=== PATIENT | male | born 1940 | race Hispanic/Latino ===

== ENCOUNTER 2018-11-04 16:31 | Emergency (ER) | payer BC, MEDICARE ==
[2018-11-04 16:31] VITALS: BMI 25.0
[2018-11-04 16:43] VITALS: RESP 18; TEMP 98.8
[2018-11-04] MEDS ORDERED: Lidocaine 5% Patch TD STA (17:03)
--- NOTE | 2018-11-04 17:03 | ED PDOC ---
Arrival/HPI <Aleks Isabel - Last Filed: 11/06/18 17:35> - General Historian: Patient - History of Present Illness Narrative History of Present Illness (Text): 78 year old man with past medical history of arthritis presents to the emergency department sent by primary doctor for right hip CT scan. Patient has had worsening right hip pain for the last week without any specific trauma or injury. He saw his primary doctor Dr. Portillo in the office today who recommended he come to the emergency department for further evaluation. Patient states he's very active has been working harder lately. 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 Denies numbness, weakness, paresthesias, pain elsewhere, saddle anesthesia, bowel/bladder incontinence or any other associated symptoms. <Aurora Carbajal - Last Filed: 11/07/18 21:40> - General Chief Complaint: Lower Extremity Problem/Injury Time Seen by Provider: 11/04/18 16:46 Past Medical History - Provider Review Nursing Documentation Reviewed: Yes - Cardiac Hx Cardiac Disorders: No - Pulmonary Hx Respiratory Disorders: No - Neurological Hx Neurological Disorder: No - Psychiatric Hx Substance Use: No <Aurora Carbajal - Last Filed: 11/07/18 21:40> Family/Social History - Physician Review Nursing Documentation Reviewed: Yes Family/Social History: No Known Family HX Smoking Status: Heavy Smoker > 10 Cigarettes Daily Hx Alcohol Use: No Hx Substance Use: No <Aurora Carbajal - Last Filed: 11/07/18 21:40> Allergies/Home Meds <Aleks Isabel Q - Last Filed: 11/06/18 17:35> <Aurora Carbajal - Last Filed: 11/07/18 21:40> Allergies/Adverse Reactions: Allergies No Known Allergies Allergy (Verified 11/04/18 16:39) Review of Systems - Review of Systems Constitutional: Normal. absent: Fatigue, Fevers Eyes: Normal. absent: Vision Changes ENT: Normal. absent: Sore Throat, Sinus Congestion Respiratory: Normal. absent: SOB, Cough Cardiovascular: Normal. absent: Chest Pain, Palpitations Gastrointestinal: Normal. absent: Abdominal Pain, Nausea, Vomiting Genitourinary Male: Normal. absent: Dysuria, Frequency Musculoskeletal: Other (hip pain). absent: Back Pain, Neck Pain Skin: Normal. absent: Rash, Pruritis Neurological: Normal. absent: Headache, Dizziness Endocrine: Normal Hemo/Lymphatic: Normal Psychiatric: Normal <Aurora Carbajal - Last Filed: 11/07/18 21:40> Physical Exam Vital Signs Temp Pulse Resp BP Pulse Ox 11/04/18 21:22 80 18 113/60 98 11/04/18 21:15 80 18 113/60 98 11/04/18 16:40 98.8 F 75 18 148/69 96 <Aleks Isabel Denise - Last Filed: 11/06/18 17:35> Vital Signs Reviewed: Yes Vital Signs Temp Pulse Resp BP Pulse Ox 11/04/18 16:40 98.8 F 75 18 148/69 96 Temperature: Afebrile Blood Pressure: Normal Pulse: Regular Respiratory Rate: Normal Appearance: Positive for: Well-Appearing, Non-Toxic, Comfortable Pain Distress: Mild Mental Status: Positive for: Alert and Oriented X 3 - Systems Exam Head: Present: Atraumatic, Normocephalic Pupils: Present: PERRL Extroacular Muscles: Present: EOMI Conjunctiva: Present: Normal Mouth: Present: Moist Mucous Membranes Neck: Present: Normal Range of Motion. No: Meningeal Signs, MIDLINE TENDERNESS, Paraspinal Tenderness Respiratory/Chest: Present: Clear to Auscultation, Good Air Exchange. No: Respiratory Distress, Accessory Muscle Use Cardiovascular: Present: Regular Rate and Rhythm, Normal S1, S2, Peripheal Pulses Present Abdomen: Present: Normal Bowel Sounds. No: Tenderness, Distention, Peritoneal Signs, Rebound, Guarding Back: Present: Normal Inspection, Pain with Leg Raise (right hip). No: CVA Tenderness, Midline Tenderness, Paraspinal Tenderness Upper Extremity: Present: Normal Inspection, Normal ROM, NORMAL PULSES, Neurovascularly Intact, Capillary Refill < 2s. No: Cyanosis, Edema, Temperature Abnormalties Lower Extremity: Present: Normal Inspection, NORMAL PULSES, Tenderness (right lateral hip), Neurovascularly Intact, Capillary Refill < 2 s. No: Edema, Normal ROM (decreased at right hip), Swelling, Erythema, Deformity, Temperature Abnormalties Neurological: Present: GCS=15, CN II-XII Intact, Speech Normal, Motor Func Grossly Intact, Normal Sensory Function. No: Gait Normal (limp from right hip pain) Skin: Present: Warm, Dry, Normal Color. No: Rashes Psychiatric: Present: Alert, Oriented x 3, Normal Insight, Normal Concentration, Normal Affect, Normal Mood <Aurora Carbajal - Last Filed: 11/07/18 21:40> Medical Decision Making ED Course and Treatment: 11/05/18 18:35 No acute displaced fracture. 2.5 x 2.6 cm subarticular osteolytic lesion in the right anterior ischium with break in the inferior lateral cortical margin. The differential considerations include large geode, metastasis and lymphoma. Clinical follow-up is advised. Correlation with MRI without and with intravenous contrast/radionuclide bone scan is recommended for further evaluation. 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 A preliminary report was provided by [employer]. The final report is tagged to the PA review folder. Based on the provider charting below: <Entered By Aurora Carbajal - 11/05/18 04:58 > Spoke with Dr. Portillo who recommends CT right hip without any further workup. Concerned for AVN or metastatic disease. CT shows osteoarthritis with cystic v. lytic lesion. Will call PMD. Unable to reach Dr. Portillo, will discharge pt home with PMD followup. Pt reports improvement in pain with medications. Diagnostic testing results and plan of care discussed with patient. Strict instructions given regarding prescription use, importance of followup, and signs/symptoms to return to ER including worsening pain, saddle anesthesia, or any other new/worsening symptoms. Pt verbalized understanding of discussion. Patient is A&Ox3, ambluating with steady gait, with vital signs stable for discharge. PROVIDER IS AWARED OF THE CYSTIC VS. LYTIC LESION AND THE PATIENT RECEIVED ORTHOPEDIC FOLLOW UP. - RAD Interpretation Radiology Orders: 11/04/18 17:21 HIP WITHOUT CONTRAST RIGHT [CT] Stat - Medication Orders Current Medication Orders: Discontinued Medications Acetaminophen (Tylenol 325mg Tab) 650 mg PO STAT STA Stop: 11/04/18 17:04 Last Admin: 11/04/18 17:50 Dose: 650 mg Lidocaine (Lidoderm) 1 ea TD STAT STA Stop: 11/04/18 17:04 Last Admin: 11/04/18 17:51 Dose: 1 ea MAR Transdermal Patch Site Document 11/04/18 17:51 GMD (Rec: 11/04/18 17:51 GMD [id number]) Transdermal Patch Site Transdermal Patch Site Right Hip <Aleks Isabel - Last Filed: 11/06/18 17:35> ED Course and Treatment: Spoke with Dr. Portillo who recommends CT right hip without any further workup. Concerned for AVN or metastatic disease. CT shows osteoarthritis with cystic v. lytic lesion. Will call PMD. Unable to reach Dr. Portillo, will discharge pt home with PMD followup. Pt reports improvement in pain with medications, continues to be well appearing. Diagnostic testing results and plan of care discussed with patient. Strict instructions given regarding prescription use, importance of followup, and signs/symptoms to return to ER including worsening pain, saddle anesthesia, or any other new/worsening symptoms. Pt verbalized understanding of discussion. Patient is A&Ox3, ambulating with steady gait, with vital signs stable for discharge. - RAD Interpretation Radiology Orders: 11/04/18 17:01 HIP MIN 4V W/ PELVIS RT [RAD] Stat LS SPINE WITH OBL > 18 YRS OLD [RAD] Stat <Aurora Carbajal - Last Filed: 11/07/18 21:40> Disposition/Present on Arrival <Aleks Isabel - Last Filed: 11/06/18 17:35> - Present on Arrival Any Indicators Present on Arrival: No History of DVT/PE: No History of Uncontrolled Diabetes: No Urinary Catheter: No History of Decub. Ulcer: No History Surgical Site Infection Following: None - Disposition Have Diagnosis and Disposition been Completed?: Yes Disposition Time: 21:00 <Aurora Carbajal - Last Filed: 11/07/18 21:40> - Disposition Diagnosis: Osteoarthritis, Lytic bone lesion of hip Disposition: HOME/ ROUTINE Condition: STABLE Discharge Instructions (ExitCare): Osteoarthritis (DC) Additional Instructions: Ibuprofen every 8 hours with food as needed for pain Lidoderm patches daily as needed, 12 hours on, 12 hours off Rest, no strenuous activity Followup with orthopedics within 2 days Followup with primary doctor within 2 days Return to ER with any new/worsening symptoms Prescriptions: Ibuprofen [Motrin Tab] 600 mg PO Q8 #30 tab Lidocaine 5% [Lidoderm] 1 ea TD DAILY #30 patch Referrals: Catrachito Grier III, MD [Medical Doctor] - Follow up with primary Lionel Portillo MD [Family Provider] - Follow up with primary Forms: [employer] (Ecuadorean), WORK NOTE
[2018-11-04 21:16] VITALS: BP 113/60; PULSE 80; O2SAT 98
--- NOTE | 2018-11-05 08:41 | CT ---
Date of service: 11/04/2018 PROCEDURE: CT of the Right Hip. HISTORY: hip pain, severe pain, r/o lesion COMPARISON: None available. TECHNIQUE: Contiguous axial images of the right hip were obtained. Coronal and sagittal reformats were generated. Radiation dose: Total exam DLP = 235.92 mGy-cm. This CT exam was performed using one or more of the following dose reduction techniques: Automated exposure control, adjustment of the mA and/or kV according to patient size, and/or use of iterative reconstruction technique. FINDINGS: BONES: There is no acute displaced fracture. There is mild diffuse bone in the right anterior ischium with cortical break. There is diffuse bone demineralization. There is a 2.5 x 2.6 cm well-circumscribed round osteolytic lesion in the subarticular anterior ischium with break in the inferior lateral cortex. There are additional osteolytic lesions in the subarticular acetabulum. RIGHT HIP JOINT: There is moderate degenerative osteoarthrosis with reduced joint space and marginal spurring. SOFT TISSUES: Unremarkable. There is moderate osteitis pubis. IMPRESSION: No acute displaced fracture. 2.5 x 2.6 cm subarticular osteolytic lesion in the right anterior ischium with break in the inferior lateral cortical margin. The differential considerations include large geode, metastasis and lymphoma. Clinical follow-up is advised. Correlation with MRI without and with intravenous contrast/radionuclide bone scan is recommended for further evaluation. 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 A preliminary report was provided by [email or web address]. The final report is tagged to the PA review folder.
== END 2018-11-04 21:22 | disposition home or self-care (01) ==
LOC: ED 16:31
DX: M16.11 Unilateral primary osteoarthritis, right hip (principal); F17.210 Nicotine dependence, cigarettes, uncomplicated; M89.8X5 Other specified disorders of bone, thigh

== ENCOUNTER 2018-12-12 10:01 | Outpatient (CLI) | payer BC | END 2018-12-12 10:02 | disposition home or self-care (01) | LOC: LAB 10:01 ==

== ENCOUNTER 2018-12-14 11:02 | Outpatient (CLI) | payer BC | END 2018-12-14 11:03 | disposition home or self-care (01) | LOC: RAD 11:02 | DX: M16.11 Unilateral primary osteoarthritis, right hip (principal); D16.9 Benign neoplasm of bone and articular cartilage, unspecified ==

== ENCOUNTER 2018-12-15 08:09 | Outpatient (CLI) | payer BC | END 2018-12-15 08:10 | disposition home or self-care (01) | LOC: RAD 08:09 | DX: M16.11 Unilateral primary osteoarthritis, right hip (principal); D16.9 Benign neoplasm of bone and articular cartilage, unspecified ==

== ENCOUNTER 2018-12-15 13:57 | Inpatient (IN) | payer BC, MEDICARE ==
[2018-12-15 16:12] LABS: BASO # 0.05 K/mm3 (0.0-2.0); BASO % 0.5 % (0.0-3.0); EOS # 0.4 (0.0-0.7); EOS % 3.5 % (1.5-5.0); HEMOGLOBIN 13.5 g/dL (14.0-18.0); LYMPH # 1.6 (1.2-3.4); LYMPH % 15.6 % (22.0-35.0); MEAN CELL VOLUME 94.4 fl (80.0-105.0); MEAN CORPUSCULAR HEMOGLOBIN 31.3 pg (25.0-35.0); MEAN CORPUSCULAR HGB CONC 33.2 g/dl (31.0-37.0); MEAN PLATELET VOLUME 11.2 fl (7.0-11.0); MONO # 0.8 (0.1-0.6); MONO % 8.3 % (1.0-6.0); RBC 4.31 10^6/uL (3.5-6.1); WHITE BLOOD COUNT 10.2 10^3/uL (4.5-11.0)
[2018-12-15 16:35] LABS: ALB/GLOB RATIO 1.1 (1.1-1.8); ALBUMIN 4.2 g/dL (3.0-4.8); BLOOD UREA NITROGEN 20 mg/dL (7-21); CALCIUM 9.3 mg/dL (8.4-10.5); GFR NON-AFRICAN AMERICAN > 60
[2018-12-15 16:36] LABS: INR 1.1; PARTIAL THROMBOPLASTIN TIME 40.8 Seconds (26.9-38.3); PROTHROMBIN TIME 12.2 SECONDS (9.4-12.5)
[2018-12-15 16:38] LABS: ALT/SGPT 18 U/L (7-56); AST/SGOT 39 U/L (17-59)
[2018-12-15] MEDS ORDERED: Vancomycin 1gm in NS 250ml 1 GM/250 ML BAG IVPB STA (16:45)
--- NOTE | 2018-12-15 16:51 | ED PDOC ---
Arrival/HPI - General Chief Complaint: Lower Extremity Problem/Injury Historian: Patient - History of Present Illness Narrative History of Present Illness (Text): 12/15/18 16:52 78 year old M with past medical history of arthritis presents to the emergency department sent by primary doctor for admission. Patient reports right hip pain for greater than a month. Recent MRI of R. Hip performed showed a septic joint. 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 Denies numbness, weakness, paresthesias, pain elsewhere, saddle anesthesia, bowel/bladder incontinence or any other associated symptoms. PMD: Dr. Portillo Time/Duration: > month Symptom Onset: Sudden Symptom Course: Unchanged Activities at Onset: Light Context: Home Past Medical History - Provider Review Nursing Documentation Reviewed: Yes Primary Care Provider: Lionel Portillo - Infectious Disease Hx of Infectious Diseases: None - Cardiac Hx Cardiac Disorders: No - Pulmonary Hx Respiratory Disorders: No - Neurological Hx Neurological Disorder: No - Psychiatric Hx Substance Use: No - Anesthesia Hx Anesthesia: Yes Hx Anesthesia Reactions: No Family/Social History - Physician Review Nursing Documentation Reviewed: Yes Family/Social History: Unknown Family HX Smoking Status: Heavy Smoker > 10 Cigarettes Daily Hx Alcohol Use: No Hx Substance Use: No Allergies/Home Meds Allergies/Adverse Reactions: Allergies No Known Allergies Allergy (Verified 11/04/18 16:39) Review of Systems - Physician Review All systems were reviewed & negative as marked: Yes - Review of Systems Constitutional: absent: Fevers ENT: absent: Sore Throat, Rhinorrhea, Epistaxis Respiratory: absent: SOB, Cough, Wheezing Cardiovascular: absent: Chest Pain, Orthopnea, Syncope Gastrointestinal: absent: Abdominal Pain, Diarrhea, Nausea, Vomiting Genitourinary Male: absent: Dysuria Musculoskeletal: Arthralgias (right hip) Skin: absent: Rash, Laceration, Ulcer, Cellulitis Neurological: absent: Headache, Dizziness, Speech Changes, Facial Droop Physical Exam Vital Signs Reviewed: Yes Vital Signs Temp Pulse Resp BP Pulse Ox 12/15/18 14:18 98.2 F 84 18 134/78 97 Temperature: Afebrile Blood Pressure: Normal Pulse: Regular Respiratory Rate: Normal Appearance: Positive for: Well-Appearing, Non-Toxic, Comfortable Pain Distress: Mild Mental Status: Positive for: Alert and Oriented X 3 - Systems Exam Head: Present: Atraumatic, Normocephalic Pupils: Present: PERRL Extroacular Muscles: Present: EOMI Conjunctiva: Present: Normal Mouth: Present: Moist Mucous Membranes Neck: Present: Normal Range of Motion Respiratory/Chest: Present: Clear to Auscultation, Good Air Exchange. No: Respiratory Distress, Accessory Muscle Use Cardiovascular: Present: Regular Rate and Rhythm, Normal S1, S2. No: Murmurs Abdomen: No: Tenderness, Distention, Peritoneal Signs Back: Present: Normal Inspection Upper Extremity: Present: Normal Inspection. No: Cyanosis, Edema Lower Extremity: Present: Tenderness (right hip tenderness). No: Edema Neurological: Present: GCS=15, CN II-XII Intact, Speech Normal Skin: Present: Warm, Dry, Normal Color. No: Rashes Psychiatric: Present: Alert, Oriented x 3, Normal Insight, Normal Concentration Medical Decision Making ED Course and Treatment: 12/15/18 16:55 Impression: 78 year old M presents to the emergency department sent by primary doctor for admission. Patient reports right hip pain for greater than a month. Recent MRI of R. Hip performed showed a septic joint. 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 Denies numbness, weakness, paresthesias, pain elsewhere, saddle anesthesia, bowel/bladder incontinence or any other associated symptoms. Plan: -- Blood Culture -- Rocephin -- Vancomycin -- Reassess and disposition Prior Visits: Notes and results from previous visits were reviewed. Patient was last seen in the emergency department on Progress Notes: Discussed case with Dr. Portillo who wants patient admitted to hospitalist. Patient's orthopedic physician is not available. - Lab Interpretations Lab Results: PT 12.2 SECONDS (9.4-12.5) 12/15/18 16:21 INR 1.10 12/15/18 16:21 APTT 40.8 Seconds (26.9-38.3) H 12/15/18 16:21 Total Bilirubin 0.6 mg/dL (0.2-1.3) 12/15/18 16:00 AST 39 U/L (17-59) 12/15/18 16:00 ALT 18 U/L (7-56) 12/15/18 16:00 Alkaline Phosphatase 109 U/L (38-126) 12/15/18 16:00 Total Protein 7.8 g/dL (5.8-8.3) 12/15/18 16:00 Albumin 4.2 g/dL (3.0-4.8) 12/15/18 16:00 Globulin 3.7 gm/dL 12/15/18 16:00 Albumin/Globulin Ratio 1.1 (1.1-1.8) 12/15/18 16:00 - Scribe Statement The provider has reviewed the documentation as recorded by the Delfino Corcoran All medical record entries made by the Delfino were at my direction and personally dictated by me. I have reviewed the chart and agree that the record accurately reflects my personal performance of the history, physical exam, medical decision making, and the department course for this patient. I have also personally directed, reviewed, and agree with the discharge instructions and disposition. Disposition/Present on Arrival - Present on Arrival Any Indicators Present on Arrival: No History of DVT/PE: No History of Uncontrolled Diabetes: No Urinary Catheter: No History of Decub. Ulcer: No History Surgical Site Infection Following: None - Disposition Have Diagnosis and Disposition been Completed?: Yes Diagnosis: Septic joint, Osteoarthritis Disposition: HOSPITALIZED Disposition Time: 16:40 Condition: STABLE
[2018-12-15] MEDS: cefTRIAXone 1 gm 1 GM/100 ML BAG IVPB SCH (17:08)
[2018-12-15] MEDS ORDERED: Enoxaparin 40 mg Syringe SC SCH (17:45)
--- NOTE | 2018-12-15 17:47 | RAD ---
Date of service: 12/15/2018 HISTORY: septic joint- potential op clearence COMPARISON: No prior. FINDINGS: LUNGS: No active pulmonary disease. PLEURA: No significant pleural effusion identified, no pneumothorax apparent. CARDIOVASCULAR: No atherosclerotic calcification present No radiographic findings to suggest acute or significant cardiovascular disease. OSSEOUS STRUCTURES: No significant abnormalities. VISUALIZED UPPER ABDOMEN: Normal. OTHER FINDINGS: None. IMPRESSION: No active disease.
--- NOTE | 2018-12-15 18:19 | CP.PCM.HP ---
<LindseySalina - Last Filed: 12/15/18 19:35> History of Present Illness - History of Present Illness History of Present Illness: Salina Portillo, PGY-1, Internal Medicine History and Physical for Dr. Hunter 78 year old male with past medical history unspecified arthritis presented with pain and discomfort of his right hip 3 weeks ago. He reports falling one week prior to pain and discomfort starting. Patient reports this pain started while he was relaxing and noticed that his gait changed significantly. Pain radiated to his right knee. Pain was worse with icy/hot [place] and had no relieving factors. He tried taking ibuprofen which did not help the pain. He denied any other symptoms other than pain including fever, chills, chest pain, shortness of breath, nausea, vomiting, constipation, diarrhea, dysuria, hematuria, numbness and tingling. He went and saw his PMD, Dr. 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 He was also given a cane at that time. He ambulated without a cane prior to this. He was told to follow up with Dr. Tolbert, who after doing imaging this week asked him to follow up at the hospital today. 12-point ROS was unremarkable except for what was mentioned above. PMH: as mentioned above PSH: vasectomy in 1969 FMHx: noncontributary SHx: smoked 5 cigarettes a day for 60 years. Denies alcohol or recreational drug use Allergies: NKDA PMD: Dr. Portillo Pharmacy: [facility] on and [facility] medications: lidocaine patch, tramadol 50 Q12. Confirmed with pharmacy. Filled recently but denies taking any medication. Present on Admission - Present on Admission Any Indicators Present on Admission: No Review of Systems - Review of Systems Review of Systems: except as mentioned above Past Patient History - Infectious Disease Hx of Infectious Diseases: None - Past Social History Smoking Status: Heavy Smoker > 10 Cigarettes Daily - CARDIAC Hx Cardiac Disorders: No - PULMONARY Hx Respiratory Disorders: No - NEUROLOGICAL Hx Neurological Disorder: No - PSYCHIATRIC Hx Substance Use: No - SURGICAL HISTORY Hx Surgeries: No - ANESTHESIA Hx Anesthesia: Yes Hx Anesthesia Reactions: No Meds Allergies/Adverse Reactions: Allergies Allergy/AdvReac Type Severity Reaction Status Date / Time No Known Allergies Allergy Verified 12/15/18 20:27 Physical Exam - Constitutional Appears: Well, Non-toxic, No Acute Distress - Head Exam Head Exam: ATRAUMATIC, NORMAL INSPECTION, NORMOCEPHALIC - Eye Exam Eye Exam: EOMI, PERRL - ENT Exam ENT Exam: Mucous Membranes Moist, Normal Exam - Neck Exam Neck exam: Positive for: Normal Inspection - Respiratory Exam Respiratory Exam: Clear to Auscultation Bilateral, NORMAL BREATHING PATTERN. absent: Rales, Rhonchi, Wheezes - Cardiovascular Exam Cardiovascular Exam: REGULAR RHYTHM, RRR, +S1, +S2. absent: Clicks, Gallop, Rubs - GI/Abdominal Exam GI & Abdominal Exam: Normal Bowel Sounds, Soft. absent: Distended, Firm, Guarding, Tenderness - Extremities Exam Additional comments: pain with ROM of right lower extremity right movement of quadriceps and calves. +4/5 strength of right lower extremity, +5/5 of left lower extremity and bilateral upper extremity. - Neurological Exam Neurological exam: Alert, CN II-XII Intact, Oriented x3 Additional comments: altered gait - Psychiatric Exam Psychiatric exam: Normal Affect, Normal Mood - Skin Skin Exam: Dry, Intact, Normal Color Results - Vital Signs Recent Vital Signs: Last Vital Signs Temp 98.2 F 12/15/18 14:18 Pulse 84 12/15/18 14:18 Resp 18 12/15/18 14:18 BP 134/78 12/15/18 14:18 Pulse Ox 97 12/15/18 14:18 - Labs Result Diagrams: 12/15/18 16:00 12/15/18 16:00 Labs: Laboratory Results - last 24 hr 12/15/18 12/15/18 12/15/18 16:00 16:00 16:21 WBC 10.2 RBC 4.31 Hgb 13.5 L Hct 40.7 L MCV 94.4 MCH 31.3 MCHC 33.2 RDW 13.0 Plt Count 251 MPV 11.2 H Neut % (Auto) 72.1 H Lymph % (Auto) 15.6 L Cass % (Auto) 8.3 H Eos % (Auto) 3.5 Baso % (Auto) 0.5 Lymph # (Auto) 1.6 Cass # (Auto) 0.8 H Eos # (Auto) 0.4 Baso # (Auto) 0.05 Absolute Neuts (auto) 7.34 H PT 12.2 INR 1.10 APTT 40.8 H Sodium 139 Potassium 4.4 Chloride 104 Carbon Dioxide 24 Anion Gap 15 BUN 20 Creatinine 0.6 L Est GFR ( Amer) > 60 Est GFR (Non-Af Amer) > 60 Random Glucose 89 Calcium 9.3 Total Bilirubin 0.6 AST 39 ALT 18 Alkaline Phosphatase 109 Total Protein 7.8 Albumin 4.2 Globulin 3.7 Albumin/Globulin Ratio 1.1 Assessment & Plan - Assessment and Plan (Free Text) Assessment: 78 year old male with past medical history unspecified arthritis presented with pain and discomfort of his right hip 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 Hip MRI on 12/14 showed moderate right hip joint eff usion with associated synovial debris and hypertrophy most prominent at the inferior aspect of the joint space. Extensive bony signal abnormality seen throughout the right proximal femur including the right femoral head and neck as well as extending to the intertrochanteric region and proximal medullary cavity. Prominent adjacent signal abnormality is seen throughout the acetabulum at its anterior, mid, and posterior aspects as well as extension into the posterior superior right pubic bone. The signal abnormality demonstrates confluent decreased T1 signal with confluent increased STIR signal with associated prominent postcontrast enhancement. These findings would be concerning for an acute septic arthritis with associated and resultant acute osteomyelitis of the right acetabulum and right femur. 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 Adjacent prominent edema and postcontrast enhancement within the surrounding musculature of the proximal right hip and acetabulum suggestive for a myositis. Prominent lobulated cystic lesion seen within posterior inferior right pubic bone/posterior acetabulum measuring 2.7 centimeters. Additional multilobulated cystic lesions seen within the anterior superior right bony acetabulum measuring up to 1.7 centimeters demonstrating decreased T1 signal with increased STIR signal with peripheral postcontrast enhancement. Mild reactive edema seen within the inferior right hemisacrum adjacent to the SI joint. Limited evaluation of the remainder of the bony pelvis demonstrates a 7 millimeter subchondral cyst within the left super ior acetabulum. 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 -Main findings of Hip MRI on 12/14 showed moderate right hip joint effusion with associated synovial debris and hypertrophy most prominent at the inferior aspect of the joint space. Extensive bony signal abnormality seen throughout the right proximal femur including the right femoral head and neck as well as extending to the intertrochanteric region and proximal medullary cavity. Prominent adjacent signal abnormality is seen throughout the acetabulum at its anterior, mid, and posterior aspects as well as extension into the posterior superior right pubic bone. The signal abnormality demonstrates confluent decreased T1 signal with confluent increased STIR signal with associated prominent postcontrast enhancement. These findings would be concerning for an acute septic arthritis with associated and resultant acute osteomyelitis of the right acetabulum and right femur. -Bone scan: intense accumulation of radionuclide only seen on the 3rd hour delayed images corresponding findings in the right acetabulum on recent cross-sectional imaging studies -Start vancomycin and ceftriaxone for antibiotic coverage for septic joint -Start tylenol PRN and ibuprofen PRN for pain -Dr. Mercado, Orthopedic Surgery, consulted for further recommendations. -Dr. Benitez, IR, consulted for further recommendations -Dr. Meneses, ID, consulted for further recommendations. Unspecified Arthritis -Complained of arthritis in the left arm -Start tylenol PRN and ibuprofen PRN for pain GI prophylaxis: protonix DVT prophylaxis: SCD Patient plan discussed with Dr. Hunter - Date & Time Date: 12/15/18 Time: 18:39 <Keven Hunter - Last Filed: 12/16/18 16:17> Results - Vital Signs Recent Vital Signs: Last Vital Signs Temp 97.6 F 12/16/18 12:55 Pulse 56 L 12/16/18 12:55 Resp 16 12/16/18 12:55 BP 140/69 12/16/18 12:55 Pulse Ox 99 12/16/18 12:55 - Labs Result Diagrams: 12/16/18 06:20 12/16/18 06:20 Labs: Laboratory Results - last 24 hr 12/15/18 12/15/18 12/15/18 16:00 16:00 16:21 WBC 10.2 RBC 4.31 Hgb 13.5 L Hct 40.7 L MCV 94.4 MCH 31.3 MCHC 33.2 RDW 13.0 Plt Count 251 MPV 11.2 H Neut % (Auto) 72.1 H Lymph % (Auto) 15.6 L Cass % (Auto) 8.3 H Eos % (Auto) 3.5 Baso % (Auto) 0.5 Lymph # (Auto) 1.6 Cass # (Auto) 0.8 H Eos # (Auto) 0.4 Baso # (Auto) 0.05 Absolute Neuts (auto) 7.34 H ESR PT 12.2 INR 1.10 APTT 40.8 H Sodium 139 Potassium 4.4 Chloride 104 Carbon Dioxide 24 Anion Gap 15 BUN 20 Creatinine 0.6 L Est GFR ( Amer) > 60 Est GFR (Non-Af Amer) > 60 Random Glucose 89 Calcium 9.3 Phosphorus Magnesium Total Bilirubin 0.6 AST 39 ALT 18 Alkaline Phosphatase 109 Total Protein 7.8 Albumin 4.2 Globulin 3.7 Albumin/Globulin Ratio 1.1 Fluid Source Fluid Appearance Fluid WBC Fluid RBC Fluid Tot Cell Count Fluid Mononuclear Cell Fl Polymorphonucl Cell Fluid Comment 12/16/18 12/16/18 12/16/18 06:20 06:20 07:00 WBC 9.1 RBC 4.38 Hgb 13.8 L Hct 41.2 L MCV 94.1 MCH 31.5 MCHC 33.5 RDW 13.1 Plt Count 263 MPV 11.2 H Neut % (Auto) 71.7 H Lymph % (Auto) 12.7 L Cass % (Auto) 9.4 H Eos % (Auto) 5.8 H Baso % (Auto) 0.4 Lymph # (Auto) 1.2 Cass # (Auto) 0.9 H Eos # (Auto) 0.5 Baso # (Auto) 0.04 Absolute Neuts (auto) 6.55 H ESR 52 H PT INR APTT Sodium 140 Potassium 4.0 Chloride 108 H Carbon Dioxide 25 Anion Gap 12 BUN 18 Creatinine 0.7 L Est GFR ( Amer) > 60 Est GFR (Non-Af Amer) > 60 Random Glucose 94 Calcium 9.0 Phosphorus 3.7 Magnesium 2.1 Total Bilirubin 0.6 AST 30 ALT 19 Alkaline Phosphatase 103 Total Protein 7.5 Albumin 4.0 Globulin 3.5 Albumin/Globulin Ratio 1.1 Fluid Source Fluid Appearance Fluid WBC Fluid RBC Fluid Tot Cell Count Fluid Mononuclear Cell Fl Polymorphonucl Cell Fluid Comment 12/16/18 12:18 WBC RBC Hgb Hct MCV MCH MCHC RDW Plt Count MPV Neut % (Auto) Lymph % (Auto) Cass % (Auto) Eos % (Auto) Baso % (Auto) Lymph # (Auto) Cass # (Auto) Eos # (Auto) Baso # (Auto) Absolute Neuts (auto) ESR PT INR APTT Sodium Potassium Chloride Carbon Dioxide Anion Gap BUN Creatinine Est GFR ( Amer) Est GFR (Non-Af Amer) Random Glucose Calcium Phosphorus Magnesium Total Bilirubin AST ALT Alkaline Phosphatase Total Protein Albumin Globulin Albumin/Globulin Ratio Fluid Source Peritoneal Fluid Appearance Sl cloudy Fluid WBC 63.0 Fluid RBC 784.0 H Fluid Tot Cell Count 100 H Fluid Mononuclear Cell 55.6 H Fl Polymorphonucl Cell 44.4 H Fluid Comment Straw Attending/Attestation - Attestation I have personally seen and examined this patient.: Yes I have fully participated in the care of the patient.: Yes I have reviewed all pertinent clinical information: Yes Notes (Text): 12/16/18 15:55 attending note; Patient seen and examined with resident in ER. Patient is alert and awake. Denies any fevers, chills Denies any nausea, vomiting. Complaining of right hip and knee pain. Patient is currently walking with a cane. Patient is a 78 year old male with past medical history arthritis presented with pain and discomfort of his right hip 3 weeks ago. He reports falling one week prior to pain and discomfort starting. 1. Right hip pain/ septic arthritis what ;patient had an apparent fall a month ago. He was evaluated by Orthopedics Dr. Vidal. MRI was ordered. MRI showed septic joint with fluid collection and suspected osteomyelitis. Case discussed with orthopedics Dr. Valenzuela in detail. Started on vancomycin and Rocephin. ID evaluation requested. 2. We will get interventional radiology for aspiration of the right hip joint. 3. Patient currently ambulates with a cane. Non weightbearing recommended. 4. Pain management with Motrin.
--- NOTE | 2018-12-15 21:11 | CARD ---
APPROVED REPORT Date of service: 12/15/2018 EKG Measurement Heart [id number] <Conclusion> Normal sinus rhythm Minimal voltage criteria for LVH, may be normal variant Borderline ECG
[2018-12-15 23:21] VITALS: BMI 21.4
[2018-12-15] MEDS ORDERED: Pneumococcal 23-Valent Vaccine IM ONE (23:21)
[2018-12-16 06:53] LABS: BASO # 0.04 K/mm3 (0.0-2.0); BASO % 0.4 % (0.0-3.0); EOS # 0.5 (0.0-0.7); EOS % 5.8 % (1.5-5.0); HEMOGLOBIN 13.8 g/dL (14.0-18.0); LYMPH # 1.2 (1.2-3.4); LYMPH % 12.7 % (22.0-35.0); MEAN CELL VOLUME 94.1 fl (80.0-105.0); MEAN CORPUSCULAR HEMOGLOBIN 31.5 pg (25.0-35.0); MEAN CORPUSCULAR HGB CONC 33.5 g/dl (31.0-37.0); MEAN PLATELET VOLUME 11.2 fl (7.0-11.0); MONO # 0.9 (0.1-0.6); MONO % 9.4 % (1.0-6.0); RBC 4.38 10^6/uL (3.5-6.1); RED CELL DISTRIBUTION WIDTH 13.1 % (11.5-14.5); WHITE BLOOD COUNT 9.1 10^3/uL (4.5-11.0)
[2018-12-16 07:37] LABS: ALB/GLOB RATIO 1.1 (1.1-1.8); ALT/SGPT 19 U/L (7-56); AST/SGOT 30 U/L (17-59); BLOOD UREA NITROGEN 18 mg/dL (7-21); GFR NON-AFRICAN AMERICAN > 60
--- NOTE | 2018-12-16 09:28 | CP.PCM.PN ---
<Salina Portillo - Last Filed: 12/16/18 12:01> Subjective - Date & Time of Evaluation Date of Evaluation: 12/16/18 Time of Evaluation: 09:25 - Subjective Subjective: Salina Portillo, PGY-1, Internal Medicine Progress Note for Dr. Hunter Patient seen and evaluated at bedside. Patient had no acute overnight events. Patient continues to have right hip pain radiating to the knee. Patient denies any other symptoms including chest pain, shortness of breath, fever, chills, nausea, vomiting, constipation, diarrhea, dysuria, hematuria. 12-point ROS was unremarkable except for what was mentioned above. Objective - Vital Signs/Intake and Output Vital Signs (last 24 hours): Temp Pulse Resp BP Pulse Ox 97.6 F 89 18 103/64 97 12/16/18 06:00 12/16/18 06:00 12/16/18 06:00 12/16/18 06:00 12/16/18 06:00 - Medications Medications: Current Medications Acetaminophen (Tylenol 325mg Tab) 650 mg PO Q6H PRN PRN Reason: Pain, Mild (1-3) Ceftriaxone Sodium (Rocephin 1 Gram Ivpb) 1 gm in 100 mls @ 100 mls/hr IVPB DAILY JENNY; Protocol Last Admin: 12/15/18 17:08 Dose: 100 mls/hr Vancomycin HCl (Vancomycin 1gm) 1 gm in 250 mls @ 167 mls/hr IVPB Q12H JENNY; Protocol Ibuprofen (Motrin Tab) 600 mg PO Q6H PRN PRN Reason: Pain, moderate (4-7) Last Admin: 12/16/18 08:39 Dose: 600 mg Pantoprazole Sodium (Protonix Inj) 40 mg IVP DAILY JENNY - Labs Labs: 12/16/18 06:20 12/16/18 06:20 PT 12.2 SECONDS (9.4-12.5) 12/15/18 16:21 INR 1.10 12/15/18 16:21 APTT 40.8 Seconds (26.9-38.3) H 12/15/18 16:21 - Constitutional Appears: Well, Non-toxic, No Acute Distress - Head Exam Head Exam: ATRAUMATIC, NORMAL INSPECTION, NORMOCEPHALIC - Eye Exam Eye Exam: EOMI, PERRL - ENT Exam ENT Exam: Mucous Membranes Moist, Normal Exam - Neck Exam Neck exam: Positive for: Normal Inspection - Respiratory Exam Respiratory Exam: Clear to Auscultation Bilateral, NORMAL BREATHING PATTERN. absent: Rales, Rhonchi, Wheezes - Cardiovascular Exam Cardiovascular Exam: REGULAR RHYTHM, RRR, +S1, +S2. absent: Clicks, Gallop, Rubs - GI/Abdominal Exam GI & Abdominal Exam: Normal Bowel Sounds, Soft. absent: Distended, Firm, Guarding, Tenderness - Extremities Exam Additional comments: pain with ROM of right lower extremity right movement of quadriceps and calves. +4/5 strength of right lower extremity, +5/5 of left lower extremity and bilateral upper extremity. - Neurological Exam Neurological exam: Alert, CN II-XII Intact, Oriented x3 Additional comments: altered gait - Psychiatric Exam Psychiatric exam: Normal Affect, Normal Mood - Skin Skin Exam: Dry, Intact, Normal Color Assessment and Plan - Assessment and Plan (Free Text) Assessment: 78 year old male with past medical history unspecified arthritis presented with pain and discomfort of his right hip 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 Hip MRI on 12/14 showed moderate right hip joint effusion with associated synovial debris and hypertrophy most prominent at the inferior aspect of the joint space. Extensive bony signal abnormality seen throughout the right proximal femur including the right femoral head and neck as well as extending to the intertrochanteric region and proximal medullary cavity. Prominent adjacent signal abnormality is seen throughout the acetabulum at its anterior, mid, and posterior aspects as well as extension into the posterior superior right pubic bone. The signal abnormality demonstrates confluent decreased T1 signal with confluent increased STIR signal with associated prominent postcontrast enhancement. These findings would be concerning for an acute septic arthritis with associated and resultant acute osteomyelitis of the right acetabulum and right femur. 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 Adjacent prominent edema and post contrast enhancement within the surrounding musculature of the proximal right hip and acetabulum suggestive for a myositis. Prominent lobulated cystic lesion seen within posterior inferior right pubic bone/posterior acetabulum measuring 2.7 centimeters. Additional multilobulated cystic lesions seen within the anterior superior right bony acetabulum measuring up to 1.7 centimeters demonstrating decreased T1 signal with increased STIR signal with peripheral postcontrast enhancement. Mild reactive edema seen within the inferior right hemisacrum adjacent to the SI joint. Limited evaluation of the remainder of the bony pelvis demonstrates a 7 millimeter subchondral cyst within the left superior acetabulum. 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 -Main findings of Hip MRI on 12/14 showed moderate right hip joint effusion with associated synovial debris and hypertrophy most prominent at the inferior aspect of the joint space. Extensive bony signal abnormality seen throughout the right proximal femur including the right femoral head and neck as well as extending to the intertrochanteric region and proximal medullary cavity. Prominent adjacent signal abnormality is seen throughout the acetabulum at its anterior, mid, and posterior aspects as well as extension into the posterior superior right pubic bone. The signal abnormality demonstrates confluent decreased T1 signal with confluent increased STIR signal with associated prominent postcontrast enhancement. These findings would be concerning for an acute septic arthritis with associated and resultant acute osteomyelitis of the right acetabulum and right femur. -Bone scan: intense accumulation of radionuclide only seen on the 3rd hour delayed images corresponding findings in the right acetabulum on recent cross-sectional imaging studies -Will follow up HIV, RPR, FTA-ABS, lyme disease, ESR, CRP, procalcitonin, blood culture for further evaluation -Plan is for aspiration of fluid of the hip and culture of that fluid wtih Dr. Benitez -Stopped antibiotics as patient is not septic at this time. Will wait for cultures prior to starting proper antibiotic regimen. -Continue tylenol PRN and ibuprofen PRN for pain -Dr. Mercado, Orthopedic Surgery, consulted for further recommendations. -Dr. Benitez, IR, consulted for further recommendations -Dr. Meneses, ID, consulted for further recommendations. Unspecified Arthritis -Complained of arthritis in the left arm -Continue tylenol PRN and ibuprofen PRN for pain GI prophylaxis: protonix DVT prophylaxis: SCD Patient plan discussed with Dr. Hunter <Keven Hunter - Last Filed: 12/16/18 16:23> Objective - Vital Signs/Intake and Output Vital Signs (last 24 hours): Temp Pulse Resp BP Pulse Ox 97.6 F 56 L 16 140/69 99 12/16/18 12:55 12/16/18 12:55 12/16/18 12:55 12/16/18 12:55 12/16/18 12:55 Intake and Output: 12/16/18 12/16/18 06:59 18:59 Intake Total 125 Balance 125 - Medications Medications: Current Medications Acetaminophen (Tylenol 325mg Tab) 650 mg PO Q6H PRN PRN Reason: Pain, Mild (1-3) Ibuprofen (Motrin Tab) 600 mg PO Q6H PRN PRN Reason: Pain, moderate (4-7) Last Admin: 12/16/18 08:39 Dose: 600 mg Pantoprazole Sodium (Protonix Inj) 40 mg IVP DAILY JENNY Last Admin: 12/16/18 09:36 Dose: 40 mg - Labs Labs: 12/16/18 06:20 12/16/18 06:20 PT 12.2 SECONDS (9.4-12.5) 12/15/18 16:21 INR 1.10 12/15/18 16:21 APTT 40.8 Seconds (26.9-38.3) H 12/15/18 16:21 Attending/Attestation - Attestation I have personally seen and examined this patient.: Yes I have fully participated in the care of the patient.: Yes I have reviewed all pertinent clinical information, including history, physical exam and plan: Yes Notes (Text): 12/16/18 16:17 attending note; Patient seen and examined with resident. Patient is alert and awake. Denies any fevers, chills Denies any nausea, vomiting. Complaining of right hip and knee pain. Patient is a 78 year old male with past medical history arthritis presented with pain and discomfort of his right hip 3 weeks ago. He reports falling one week prior to pain and discomfort starting. 1. Right hip pain/ septic arthritis; MRI showed septic joint with fluid collection and suspected osteomyelitis. Case discussed with orthopedics Dr. Valenzuela in detail. 2. s/p aspiration of R hip by interventional radiology. Cultures sent. Follow-up closely . 3. Orthopedics evaluation appreciated. non weightbearing of right lower extremity recommended. PT evaluation requested. 4. Pain management with Motrin. 5. Septic arthritis; ID evaluation appreciated. Antibiotics on hold still culture results. Diagnosis, follow-up plan discussed with the patient in detail. Case discussed with PMD Dr. Portillo in detail.
[2018-12-16] MEDS: cefTRIAXone 1 gm 1 GM/100 ML BAG IVPB SCH (09:36)
[2018-12-16] MEDS ORDERED: Vancomycin 1gm in NS 250ml 1 GM/250 ML BAG IVPB SCH (10:00)
[2018-12-16] MEDS ORDERED: Midazolam 2 MG/2 ML VIAL ONE (11:53)
[2018-12-16] MEDS ORDERED: Midazolam 2 MG/2 ML VIAL IVP ONE (11:55)
[2018-12-16 12:19] LABS: BODY FLUID TYPE PERITONEAL
[2018-12-16 12:59] LABS: BF GROSS APPEARANCE SL CLOUDY (CLEAR)
[2018-12-16 13:00] LABS: BODY FLUID TOTAL COUNT 100 (0-0)
--- NOTE | 2018-12-16 13:00 | CP.PCM.CON ---
History of Present Illness - History of Present Illness History of Present Illness: Orthopedic consultation Dr. Valenzuela 78M complains of increasing right hip pain over the last two months, now severe, with increasing limp. He says he tripped and fell about 2 months ago, and at that time he noticed hip pain, but he was still able to walk with some pain. When the pain continued and did not resolve, he called his primary doctor who referred him to the ER for work up. At that time, he had a hip CT completed (11/04/2018) that showed some subchondral cysts, including large cyst near acetabulum, and patient was discharged to f/u with ortho as outpt. He was seen in office of Dr. Tolbert who ordered MRI of hip at that time, and after receiving results, called patient and primary doctor to have patient proceed to ER at that time. Patient denies any other trauma. Denies foreign travel. Denies fever/chills/cough/cold recently. No recent dysuria. No prior hip pain prior to this fall. He is now using cane due to hip pain and limp. Past Patient History - Infectious Disease Hx of Infectious Diseases: None - Past Social History Smoking Status: Current Some Days Smoker - CARDIAC Hx Cardiac Disorders: No - PULMONARY Hx Respiratory Disorders: Yes (SMOKES 5 CIGARETTES) - NEUROLOGICAL Hx Neurological Disorder: No - HEENT Hx HEENT Problems: (WEARS RX GLASSES) - MUSCULOSKELETAL/RHEUMATOLOGICAL Hx Musculoskeletal Disorders: Yes (RIGHT KNEE PAIN.) Hx Arthritis: Yes (SEPTIC JOINT RIGHT HIP) Hx Falls: No Hx Osteoarthritis: Yes Hx Unsteady Gait: Yes (CANE) - GENITOURINARY/GYNECOLOGICAL Hx Genitourinary Disorders: Yes (VASECTOY 1967) - PSYCHIATRIC Hx Psychophysiologic Disorder: No Hx Substance Use: No - SURGICAL HISTORY Hx Surgeries: No - ANESTHESIA Hx Anesthesia: Yes Hx Anesthesia Reactions: No Meds Allergies/Adverse Reactions: Allergies Allergy/AdvReac Type Severity Reaction Status Date / Time No Known Allergies Allergy Verified 12/15/18 20:27 - Medications Medications: Current Medications Acetaminophen (Tylenol 325mg Tab) 650 mg PO Q6H PRN PRN Reason: Pain, Mild (1-3) Ibuprofen (Motrin Tab) 600 mg PO Q6H PRN PRN Reason: Pain, moderate (4-7) Last Admin: 12/16/18 08:39 Dose: 600 mg Pantoprazole Sodium (Protonix Inj) 40 mg IVP DAILY JENNY Last Admin: 12/16/18 09:36 Dose: 40 mg Physical Exam - Constitutional Appears: Well, No Acute Distress - Head Exam Head Exam: ATRAUMATIC - Neck Exam Neck exam: Positive for: Full Rom, Normal Inspection - Expanded Lower Extremities Exam Right Hip exam: normal inspection (pain with any right hip rom) Neuro vacular tendon exam: no vascular compromise (calves soft NT neghomans +ROM ankle/toes, sesnationintact) - Neurological Exam Neurological exam: Alert, Oriented x3 - Psychiatric Exam Psychiatric exam: Normal Affect, Normal Mood - Skin Skin Exam: Dry, Intact, Normal Color, Warm Results - Vital Signs Recent Vital Signs: Last Vital Signs Temp 97.6 F 12/16/18 12:25 Pulse 61 12/16/18 12:25 Resp 15 12/16/18 12:25 BP 129/64 12/16/18 12:25 Pulse Ox 97 12/16/18 12:25 - Labs Result Diagrams: 12/16/18 06:20 12/16/18 06:20 Labs: Laboratory Results - last 24 hr 12/15/18 12/15/18 12/15/18 16:00 16:00 16:21 WBC 10.2 RBC 4.31 Hgb 13.5 L Hct 40.7 L MCV 94.4 MCH 31.3 MCHC 33.2 RDW 13.0 Plt Count 251 MPV 11.2 H Neut % (Auto) 72.1 H Lymph % (Auto) 15.6 L Wolfe % (Auto) 8.3 H Eos % (Auto) 3.5 Baso % (Auto) 0.5 Lymph # (Auto) 1.6 Wolfe # (Auto) 0.8 H Eos # (Auto) 0.4 Baso # (Auto) 0.05 Absolute Neuts (auto) 7.34 H ESR PT 12.2 INR 1.10 APTT 40.8 H Sodium 139 Potassium 4.4 Chloride 104 Carbon Dioxide 24 Anion Gap 15 BUN 20 Creatinine 0.6 L Est GFR ( Amer) > 60 Est GFR (Non-Af Amer) > 60 Random Glucose 89 Calcium 9.3 Phosphorus Magnesium Total Bilirubin 0.6 AST 39 ALT 18 Alkaline Phosphatase 109 Total Protein 7.8 Albumin 4.2 Globulin 3.7 Albumin/Globulin Ratio 1.1 Fluid Source Fluid WBC Fluid Mononuclear Cell Fl Polymorphonucl Cell 12/16/18 12/16/18 12/16/18 06:20 06:20 07:00 WBC 9.1 RBC 4.38 Hgb 13.8 L Hct 41.2 L MCV 94.1 MCH 31.5 MCHC 33.5 RDW 13.1 Plt Count 263 MPV 11.2 H Neut % (Auto) 71.7 H Lymph % (Auto) 12.7 L Wolfe % (Auto) 9.4 H Eos % (Auto) 5.8 H Baso % (Auto) 0.4 Lymph # (Auto) 1.2 Wolfe # (Auto) 0.9 H Eos # (Auto) 0.5 Baso # (Auto) 0.04 Absolute Neuts (auto) 6.55 H ESR 52 H PT INR APTT Sodium 140 Potassium 4.0 Chloride 108 H Carbon Dioxide 25 Anion Gap 12 BUN 18 Creatinine 0.7 L Est GFR ( Amer) > 60 Est GFR (Non-Af Amer) > 60 Random Glucose 94 Calcium 9.0 Phosphorus 3.7 Magnesium 2.1 Total Bilirubin 0.6 AST 30 ALT 19 Alkaline Phosphatase 103 Total Protein 7.5 Albumin 4.0 Globulin 3.5 Albumin/Globulin Ratio 1.1 Fluid Source Fluid WBC Fluid Mononuclear Cell Fl Polymorphonucl Cell 12/16/18 12:18 WBC RBC Hgb Hct MCV MCH MCHC RDW Plt Count MPV Neut % (Auto) Lymph % (Auto) Wolfe % (Auto) Eos % (Auto) Baso % (Auto) Lymph # (Auto) Wolfe # (Auto) Eos # (Auto) Baso # (Auto) Absolute Neuts (auto) ESR PT INR APTT Sodium Potassium Chloride Carbon Dioxide Anion Gap BUN Creatinine Est GFR ( Amer) Est GFR (Non-Af Amer) Random Glucose Calcium Phosphorus Magnesium Total Bilirubin AST ALT Alkaline Phosphatase Total Protein Albumin Globulin Albumin/Globulin Ratio Fluid Source Peritoneal Fluid WBC 63.0 Fluid Mononuclear Cell 55.6 H Fl Polymorphonucl Cell 44.4 H - Impressions Impression: atient Name / ID : KEENAN Alva / [id number] Exam Date : 12/14/2018 11:18:58 ( Approved ) Study Comment : Sex / Age : M / 78Y Creator : Augusto Baird MD Dictator : Augusto Baird MD Channel Rebuilder : Presentation Team Member : Augusto Baird MD Approver2 : Report Date : 12/14/2018 18:02:15 My Comment : MRI right hip History: Hip pain. Comparison: CT dated 11/04/2018 Technique: Multi-echo multiplanar sequences were performed through the right hip without and with the use of intravenous contrast. Findings: Right hip: Moderate right hip joint effusion with associated synovial debris and hypertrophy most prominent at the inferior aspect of the joint space. Extensive bony signal abnormality seen throughout the right proximal femur including the right femoral head and neck as well as extending to the intertrochanteric region and proximal medullary cavity. Prominent adjacent signal abnormality is seen throughout the acetabulum at its anterior, mid, and posterior aspects as well as extension into the posterior superior right pubic bone. The signal abnormality demonstrates confluent decreased T1 signal with confluent increased STIR signal with associated prominent postcontrast enhancement. These findings would be concerning for an acute septic arthritis with associated and resultant acute osteomyelitis of the right acetabulum and right femur. 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 Additional considerations may include osseous metastatic disease versus the sequelae of acute inflammatory changes versus additional etiology. Clinical correlation. Adjacent prominent edema and postcontrast enhancement within the surrounding musculature of the proximal right hip and acetabulum suggestive for a myositis. Again identified is a prominent lobulated cystic lesion seen within posterior inferior right pubic bone/posterior acetabulum measuring 2.7 centimeters best seen on series 5, image 11 demonstrating decreased T1 signal and increased STIR signal with some peripheral postcontrast enhancement. This is of uncertain clinical etiology. This may represent a large intraosseous ganglia versus synovial cyst versus additional etiology. There appears to be some cortical breakthrough at the lateral margin of the cyst which is better delineated on the CT scan. Additional multilobulated cystic lesions seen within the anterior superior bony acetabulum measuring up to 1.7 centimeters demonstrating decreased T1 signal with increased STIR signal with peripheral postcontrast enhancement. This is also of uncertain clinical etiology. This may represent a prominent subchondral cyst and or ganglia and or additional etiology. Moderate insertional tendinopathy of the left iliopsoas tendon on the lesser trochanter. Right rectus femoris tendon attachments appear preserved. Moderate insertional tendinopathy of the right gluteus tendon attachments on the greater trochanter. Moderate right-sided hamstring origin tendinosis. Mild reactive edema seen within the inferior right hemisacrum adjacent to the SI joint as demonstrated on series 5, images 10-12; nonspecific. Developing acute infectious and or inflammatory changes at this level cannot be excluded. Clinic al correlation. Degenerative changes in the lower lumbar spine. Limited evaluation of the remainder of the bony pelvis demonstrates a 7 millimeter subchondral cyst within the left superior acetabulum. Moderate degenerative changes of the left hip joint space. Moderate insertional tendinopathy of the left gluteus tendon attachments on the greater trochanter. Impression: 1. Moderate right hip joint effusion with associated synovial debris and hypertrophy most prominent at the inferior aspect of the joint space. Extensive bony signal abnormality seen throughout the right proximal femur including the right femoral head and neck as well as extending to the intertrochanteric region and proximal medullary cavity. Prominent adjacent signal abnormality is seen throughout the acetabulum at its anterior, mid, and posterior aspects as well as extension into the posterior superior right pubic bone. The signal abnormality demonstrates confluent decreased T1 signal with confluent increased STIR signal with associated prominent postcontrast enhancement. These findings would be concerning for an acute septic arthritis with associated and resultant acute osteomyelitis of the right acetabulum and right femur. 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 Additional con siderations may include osseous metastatic disease versus the sequelae of acute inflammatory changes versus additional etiology. Clinical correlation. 2. Adjacent prominent edema and postcontrast enhancement within the surrounding musculature of the proximal right hip and acetabulum suggestive for a myositis. 3. Again identified is a prominent lobulated cystic lesion seen within posterior inferior right pubic bone/posterior acetabulum measuring 2.7 centimeters best seen on series 5, image 11 demonstrating decreased T1 signal and increased STIR signal with some peripheral postcontrast enhancement. This is of uncertain clinical etiology. This may represent a large intraosseous ganglia versus synovial cyst versus intraosseous cyst versus additional etiology. There appears to be some cortical breakthrough at the lateral margin of the cyst which is better delineated on the CT scan. 4. Additional multilobulated cystic lesions seen within the anterior superior right bony acetabulum measuring up to 1.7 centimeters demonstrating decreased T1 signal with increased STIR signal with peripheral postcontrast enhancement. This is also of uncertain clinical etiology. This may represent a prominent subchondral cyst and or ganglia and or additional etiology. 5. Moderate insertional tendinopathy of the left iliopsoas tendon on the lesser trochanter. 6. Moderate insertional tendinopathy of the right gluteus tendon attachments on the greater trochanter. 7. Moderate right-sided hamstring origin tendinosis. 8. Mild reactive edema seen within the inferior right hemisacrum adjacent to the SI joint as demonstrated on series 5, images 10-12; nonspecific. Developing acute infectious and or inflammatory changes at this level cannot be excluded. Clinical correlation. 9. Degenerative changes in the lower lumbar spine. 10. Limited evaluation of the remainder of the bony pelvis demonstrates a 7 millimeter subchondral cyst within the left superior acetabulum. Moderate degen erative changes of the left hip joint space. Moderate insertional tendinopathy of the left gluteus tendon attachments on the greater trochanter. These findings were related to the physician data assistant Johanna Manzo at 5:40 p.m. on 12/14/2018. Assessment & Plan (1) Septic arthritis of hip Assessment and Plan: with secondary osteomyelitis based on MRI unclear cause no acute orthopedic intervention indicated, will need minimum 6 weeks IV antibiotics ESR elevated, CRP pending ID consultation PICC line PT for ambulation training, NWB at this time RLE VTE proph d/w Dr. Valenzuela, agrees with above d/w Dr. Benitez, 3cc only of normal appearing synovial fluid, fluid cell count is not indicative of infection will f/u cultures/gram stain d/w Dr. Valenzuela Status: Acute
--- NOTE | 2018-12-16 14:42 | CON ---
DATE OF CONSULTATION: 12/16/2018 The patient is seen in room 372, bed 2. CHIEF COMPLAINT: Right hip pain times several weeks. HISTORY OF PRESENT ILLNESS: This is a 78-year-old male with a history of arthritis, who has been seen in the emergency room with right hip pain. Actually, the patient was seen in the emergency room in [facility], more than a [id number] ago for hip pain and had a CAT scan at that time, continued to have pain. There were no fevers, no chills, no nausea, no vomiting, no chest pain. The patient returned to the emergency room yesterday, was seen by Dr. Karimi . 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 He denies any headaches, blurred vision. No neck pain. No sore throat. PAST MEDICAL HISTORY: Significant only he was a heavy smoker, he is down to 7-10 cigarettes a day. He states he does not have any diabetes, hypertension, just the arthritis. PAST SURGICAL HISTORY: Noncontributory. ALLERGIES: HE HAS NO KNOWN ALLERGIES. MEDICATIONS: He takes the Motrin for his hip pain. He has no travel history. He lives with his . He has no pets. He works in [place], . PHYSICAL EXAMINATION: GENERAL: The patient is in bed. VITAL SIGNS: A temperature of 98, blood pressure is 134/70, heart rate of 84, respiratory rate of 20. HEENT: Examination of HEENT is unremarkable. NECK: Supple. LUNGS: Have decreased breath sounds. HEART: Normal S1, S2. ABDOMEN: Examination is soft, nontender. No rebound, no guarding, no andrew. EXTREMITIES: On examination of the hip, there is some pain and tenderness with movement. No erythema and no discharge on exam. LABORATORY DATA: Laboratory examination reveals a white count of 10,000, hemoglobin of 13, platelets of 251. Coagulation is noted. Chemistries reveal a BUN of 18, creatinine of 0.8. Microbiology is pending. The patient did have an MRI of the hip on 12/14/2018, which showed a moderate right hip effusion associated with synovial debris and hypertrophy, and the patient also had a CAT scan of the hip on 11/04/2018, osteolytic lesions are seen on the CAT scan. He had a chest x-ray, no active disease. History and physical examination reveals the patient has had right hip pain. ASSESSMENT AND PLAN: A 78-year-old male with no significant past medical history, now with right hip pain, osteoarthritis, and since the chronicity of this is well over almost 2-month-old, we will hold off on any antibiotics, if there was a septic joint, it would have been destroyed by now, unless there is no infection, he does not describe any fevers and chills, may be just osteoarthritis, and we will discontinue the vancomycin and Rocephin. No antibiotics at this point. Recommended synovial fluid evaluation in addition to gram-stain and cultures and cell count and crystal evaluation and routine. We will also order a sed rate and a C-reactive protein, and we will make further recommendations upon availability. No antibiotics at this point since the patient has had the symptoms now over 6 weeks, and we will order a line workup with a line tests with reflex, rule out line septic joint, in addition to sed rate, C-reactive protein, and procalcitonin, inflammatory markers, and we will follow closely with you. Hold antibiotics, pending synovial fluid aspirate and cultures, crystals and gram stain. Jorje Meneses MD
--- NOTE | 2018-12-16 16:15 | CT ---
PROCEDURE: CT guided right hip aspiration HISTORY: Possible septic arthritis right hip. PHYSICIAN(S): Abdon Benitez MD. TECHNIQUE: The relative risks and indications of the procedure were explained to the patient and consent obtained. The patient was placed supine on the CT scanner and preliminary images through the pelvis obtained. Conscious sedation and monitoring were provided throughout the procedure by a nurse. There is a small amount of fluid noted in the right hip joint. A right anterior approach was selected the area prepped and draped usual sterile fashion. Conscious sedation monitoring were provided throughout the procedure by a nurse. 1 percent xylocaine was used anesthetize skin soft tissues. 18 gauge needle was advanced into the right hip joint. 3 cc of clear viscous fluid was aspirated. Cell count/differential and culture were sent. The patient tolerated the procedure well. IMPRESSION: 1. CT-guided right hip aspiration. 2-3 cc viscous clear fluid was aspirated
--- NOTE | 2018-12-16 17:07 | RAD ---
Date of service: 12/16/2018 PROCEDURE: Pelvis and right hip HISTORY: Septic joint, right hip pain. COMPARISON: December 15, 2018. Three-phase bone scan. 12/14/2018 MRI right hip. 11/04/2018 CT right hip. TECHNIQUE: Standard protocol for this study/examination. Two views. FINDINGS: Degenerative changes in both hips right greater than left. The lytic findings seen with clarity on recent cross-sectional imaging studies are difficult to appreciate on the current examination. IMPRESSION: No acute findings related to/ accounting for the clinical presentation. Severe degenerative changes right hip.
[2018-12-16 17:14] LABS: RAPID PLASMA REAGIN NONREACTIVE (NONREACTIVE)
[2018-12-17] MEDS: Pantoprazole 40 mg EC Tab PO SCH (06:36)
[2018-12-17 07:07] LABS: BASO # 0.03 K/mm3 (0.0-2.0); BASO % 0.3 % (0.0-3.0); EOS # 0.4 (0.0-0.7); EOS % 3.1 % (1.5-5.0); HEMOGLOBIN 13.3 g/dL (14.0-18.0); LYMPH % 8.7 % (22.0-35.0); MEAN CELL VOLUME 95.1 fl (80.0-105.0); MEAN CORPUSCULAR HEMOGLOBIN 30.8 pg (25.0-35.0); MEAN CORPUSCULAR HGB CONC 32.4 g/dl (31.0-37.0); MEAN PLATELET VOLUME 11.4 fl (7.0-11.0); MONO # 0.9 (0.1-0.6); MONO % 7.8 % (1.0-6.0); RBC 4.32 10^6/uL (3.5-6.1); RED CELL DISTRIBUTION WIDTH 13.1 % (11.5-14.5); WHITE BLOOD COUNT 11.2 10^3/uL (4.5-11.0)
[2018-12-17 07:37] LABS: ALB/GLOB RATIO 1.1 (1.1-1.8); ALBUMIN 3.9 g/dL (3.0-4.8); ALT/SGPT 13 U/L (7-56); AST/SGOT 29 U/L (17-59); BLOOD UREA NITROGEN 18 mg/dL (7-21); CALCIUM 9.1 mg/dL (8.4-10.5); GFR NON-AFRICAN AMERICAN > 60
--- NOTE | 2018-12-17 13:26 | CP.PCM.PN ---
<Amberly Lynch - Last Filed: 12/17/18 13:26> Subjective - Date & Time of Evaluation Date of Evaluation: 12/17/18 Time of Evaluation: 09:30 - Subjective Subjective: INTERNAL MEDICINE PROGRESS NOTE FOR DR. CHARLES Lynch PGY1 Pt seen and examined at bedside this am. Pt underwent R hip arthrocentesis yesterday without complications. He is denying 12 point ROS today Objective - Vital Signs/Intake and Output Vital Signs (last 24 hours): Temp Pulse Resp BP Pulse Ox 98.2 F 80 18 107/65 97 12/17/18 08:58 12/17/18 08:58 12/17/18 08:58 12/17/18 08:58 12/17/18 08:58 Intake and Output: 12/17/18 12/17/18 06:59 18:59 Intake Total 420 Balance 420 - Medications Medications: Current Medications Acetaminophen (Tylenol 325mg Tab) 650 mg PO Q6H PRN PRN Reason: Pain, Mild (1-3) Diphenhydramine HCl (Benadryl) 25 mg PO HS PRN PRN Reason: Insomnia Ibuprofen (Motrin Tab) 600 mg PO Q6H PRN PRN Reason: Pain, moderate (4-7) Last Admin: 12/17/18 09:02 Dose: 600 mg Pantoprazole Sodium (Protonix Ec Tab) 40 mg PO 0600 JENNY Last Admin: 12/17/18 06:36 Dose: 40 mg - Labs Labs: 12/17/18 05:00 12/17/18 05:00 PT 12.2 SECONDS (9.4-12.5) 12/15/18 16:21 INR 1.10 12/15/18 16:21 APTT 40.8 Seconds (26.9-38.3) H 12/15/18 16:21 - Constitutional Appears: Well, Non-toxic, No Acute Distress - Head Exam Head Exam: ATRAUMATIC, NORMAL INSPECTION, NORMOCEPHALIC - Eye Exam Eye Exam: EOMI, PERRL - ENT Exam ENT Exam: Mucous Membranes Moist, Normal Exam - Neck Exam Neck exam: Positive for: Normal Inspection - Respiratory Exam Respiratory Exam: Clear to Auscultation Bilateral, NORMAL BREATHING PATTERN. absent: Rales, Rhonchi, Wheezes - Cardiovascular Exam Cardiovascular Exam: REGULAR RHYTHM, RRR, +S1, +S2. absent: Clicks, Gallop, Rubs - GI/Abdominal Exam GI & Abdominal Exam: Normal Bowel Sounds, Soft. absent: Distended, Firm, Guarding, Tenderness - Extremities Exam Additional comments: pain with ROM of right lower extremity right movement of quadriceps and calves. +4/5 strength of right lower extremity, +5/5 of left lower extremity and bilateral upper extremity. - Neurological Exam Neurological exam: Alert, CN II-XII Intact, Oriented x3 Additional comments: altered gait - Psychiatric Exam Psychiatric exam: Normal Affect, Normal Mood - Skin Skin Exam: Dry, Intact, Normal Color Assessment and Plan - Assessment and Plan (Free Text) Assessment: 78 year old male with past medical history arthritis presented with pain and discomfort of his right hip 3 weeks ago s/p fall one week prior to pain and discomfort starting. Plan: Septic Joint of the Right Hip Hip/Pelvis X-ray 12/16: No acute findings related to/ accounting for the clinical presentation. Severe degenerative changes right hip. Cyst Aspiration CT 12/16: . CT-guided right hip aspiration. 2-3 cc viscous clear fluid was aspirated. MRI Hip 12/16: 1. Moderate right hip joint effusion with associated synovial debris and hypertrophy most prominent at the inferior aspect of the joint space. Extensive bony signal abnormality seen throughout the right proximal femur including the right femoral head and neck as well as extending to the intertrochanteric region and proximal medullary cavity. Prominent adjacent signal abnormality is seen throughout the acetabulum at its anterior, mid, and posterior aspects as well as extension into the posterior superior right pubic bone. The signal abnormality demonstrates confluent decreased T1 signal with confluent increased STIR signal with associated prominent postcontrast enh ancement. These findings would be concerning for an acute septic arthritis with associated and resultant acute osteomyelitis of the right acetabulum and right femur. 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 Additional considerations may include osseous metastatic disease versus the sequelae of acute inflammatory changes versus additional etiology. Clinical correlation. 2. Adjacent prominent edema and postcontrast enhancement within the surrounding musculature of the proximal right hip and acetabulum suggestive for a myositis. 3. Again identified is a prominent lobulated cystic lesion seen within posterior inferior right pubic bone/posterior acetabulum measuring 2.7 centimeters best seen on series 5, image 11 demonstrating decreased T1 signal and increased STIR signal with some peripheral postcontrast enhancement. This is of uncertain clinical etiology. This may represent a large intraosseous ganglia versus synovial cyst versus intraosseous cyst versus additional etiology. There appears to be some cortical breakthrough at the lateral margin of the cyst which is better delineated on the CT scan. 4. Additional multilobulated cystic lesions seen within the anterior superior right bony acetabulum measuring up to 1.7 centimeters demonstrating decreased T1 signal with increased STIR signal with peripheral postcontrast enhancement. This is also of uncertain clinical etiology. This may represent a prominent subchondral cyst and or ganglia and or additional etiology. 5. Moderate insertional tendinopathy of the left iliopsoas tendon on the lesser trochanter. 6. Moderate insertional tendinopathy of the right gluteus tendon attachments on the greater trochanter. 7. Moderate right- sided hamstring origin tendinosis. 8. Mild reactive edema seen within the inferior right hemisacrum adjacent to the SI joint as demonstrated on series 5, images 10-12; nonspecific. Developing acute infectious and or inflammatory changes at this level cannot be excluded. Clinical correlation. 9. Degenerative changes in the lower lumbar spine. 10. Limited evaluation of the remainder of the bony pelvis demonstrates a 7 millimeter subchondral cyst within the left superior acetabulum. Moderate degenerative changes of the left hip joint space. Moderate insertional tendinopathy of the left gluteus tendon attachments on the greater trochanter -s/p 2-3cc R hip arthrocentesis. Fluid WBC 53. RPR: nonreactive. HIV: nonreactive. Procalcitonin: 0.08. CRP: 6.10. Blood culture: NKTD FTA-ABS, lyme disease, ESR pending -Hold antiiotics, pending synovial fluid aspirate & cultures, crystals, gram stain -Continue tylenol PRN and ibuprofen PRN for pain -Pending -Dr. Valenzuela, Orthopedic Surgery, consulted -Dr. Benitez, IR, consulted -Dr. Meneses, ID, consulted Unspecified Arthritis -Complained of arthritis in the left arm -Continue tylenol PRN and ibuprofen PRN for pain GI/DVT: protonix/SCD Case reviewed with attending physician, Dr. Charles Lynch PGY1 <Keven Hunter - Last Filed: 12/17/18 15:56> Objective - Vital Signs/Intake and Output Vital Signs (last 24 hours): Temp Pulse Resp BP Pulse Ox 98.2 F 80 18 107/65 97 12/17/18 08:58 12/17/18 08:58 12/17/18 08:58 12/17/18 08:58 12/17/18 08:58 Intake and Output: 12/17/18 12/17/18 06:59 18:59 Intake Total 420 Balance 420 - Medications Medications: Current Medications Acetaminophen (Tylenol 325mg Tab) 650 mg PO Q6H PRN PRN Reason: Pain, Mild (1-3) Diphenhydramine HCl (Benadryl) 25 mg PO HS PRN PRN Reason: Insomnia Ibuprofen (Motrin Tab) 600 mg PO Q6H PRN PRN Reason: Pain, moderate (4-7) Last Admin: 12/17/18 09:02 Dose: 600 mg Pantoprazole Sodium (Protonix Ec Tab) 40 mg PO 0600 JENNY Last Admin: 12/17/18 06:36 Dose: 40 mg - Labs Labs: 12/17/18 05:00 12/17/18 05:00 PT 12.2 SECONDS (9.4-12.5) 12/15/18 16:21 INR 1.10 12/15/18 16:21 APTT 40.8 Seconds (26.9-38.3) H 12/15/18 16:21 Attending/Attestation - Attestation I have personally seen and examined this patient.: Yes I have fully participated in the care of the patient.: Yes I have reviewed all pertinent clinical information, including history, physical exam and plan: Yes Notes (Text): 12/17/18 15:52 attending note; Patient seen and examined with resident. Patient is alert and awake. Denies any fevers, chills Denies any nausea, vomiting. Complaining of right hip and knee pain. Patient is a 78 year old male with past medical history arthritis presented with pain and discomfort of his right hip 3 weeks ago. He reports falling one week prior to pain and discomfort starting. 1. Right hip pain/ septic arthritis; MRI showed septic joint with fluid co llection and suspected osteomyelitis. MRI reviewed with radiologist in [place]. Case discussed with orthopedics Dr. El-Gazzar in detail. 2. s/p aspiration of R hip by interventional radiology. Blood Culture is negative. Joint fluid cell count is not suggestive of infectious process. Follow-up culture result closely. 3. Orthopedics evaluation appreciated. non weightbearing of right lower extremi ty recommended. PT evaluation requested. 4. Pain management with Motrin. 5. Septic arthritis; ID evaluation appreciated. Antibiotics on hold still culture results. ESR is elevated. CRP normal. Procalcitonin is negative. X-ray of the hip showed severe degenerative changes. Diagnosis, follow-up plan discussed with the patient in detail. Case discussed with PMD Dr. Portillo in detail.
--- NOTE | 2018-12-18 01:14 | PN ---
DATE: 12/17/2018 SUBJECTIVE: The patient is in bed, in no acute distress, nontoxic. PHYSICAL EXAMINATION: VITAL SIGNS: Temperature is 97, blood pressure is 107/60, respiratory rate of 18, heart rate of 80. HEENT: Unremarkable. NECK: Supple. LUNGS: Decreased breath sounds. HEART: Normal S1 and S2. ABDOMEN: Soft. LABORATORY DATA: Reveals a white count of 11,200, hemoglobin of 13, BUN of 18, creatinine of 0.7. Procalcitonin is 0.02. Peritoneal fluid is noted with 63 wbc's. HIV is negative. Dr. Hunter's note is reviewed. Dr. Abdon Benitez's cyst aspiration CT of the right hip is reviewed, but it is labelled as peritoneal fluid, must be the synovial fluid. It is reported as cloudy, but only 63 wbc's. Microbiology, no growth. Blood cultures, no growth. Aspiration cultures, no growth. MEDICATIONS: Review of orders; the patient is not on any antibiotics. ASSESSMENT AND PLAN: A 78-year-old male with a past medical history significant for osteoarthritis, now with right hip pain. We will hold off on the antibiotics. Thus far, he does not appear to be infected. The patient has 63 wbc's and negative cultures, off antibiotics, maybe osteoarthritis. We will follow with you. Jorje Meneses MD
[2018-12-18] MEDS: Pantoprazole 40 mg EC Tab PO SCH (05:32)
[2018-12-18 06:59] LABS: ALB/GLOB RATIO 1.1 (1.1-1.8); ALBUMIN 3.5 g/dL (3.0-4.8); ALT/SGPT 15 U/L (7-56); AST/SGOT 31 U/L (17-59); BLOOD UREA NITROGEN 23 mg/dL (7-21); CALCIUM 8.9 mg/dL (8.4-10.5); GFR NON-AFRICAN AMERICAN > 60
[2018-12-18 07:10] LABS: BASO # 0.03 K/mm3 (0.0-2.0); BASO % 0.3 % (0.0-3.0); EOS # 0.6 (0.0-0.7); EOS % 6.3 % (1.5-5.0); HEMOGLOBIN 12.6 g/dL (14.0-18.0); LYMPH # 1.4 (1.2-3.4); LYMPH % 14.1 % (22.0-35.0); MEAN CELL VOLUME 95.6 fl (80.0-105.0); MEAN CORPUSCULAR HGB CONC 32.4 g/dl (31.0-37.0); MEAN PLATELET VOLUME 11.6 fl (7.0-11.0); MONO # 0.9 (0.1-0.6); MONO % 9.7 % (1.0-6.0); RBC 4.07 10^6/uL (3.5-6.1); RED CELL DISTRIBUTION WIDTH 13.3 % (11.5-14.5); WHITE BLOOD COUNT 9.6 10^3/uL (4.5-11.0)
--- NOTE | 2018-12-18 12:02 | CP.PCM.PN ---
<Kvng Isabel Christa - Last Filed: 12/18/18 16:35> Subjective - Date & Time of Evaluation Date of Evaluation: 12/18/18 Time of Evaluation: 09:30 - Subjective Subjective: Resident Progress Note for Hospitalist Service Patient examined at bedside. No acute events overnight. Patient states pain is well controlled at this time and mobility is improving with physical therapy. Objective - Vital Signs/Intake and Output Vital Signs (last 24 hours): Temp Pulse Resp BP Pulse Ox 98 F 66 20 132/66 95 12/18/18 09:16 12/18/18 09:16 12/18/18 09:16 12/18/18 09:16 12/18/18 09:16 Intake and Output: 12/18/18 12/18/18 06:59 18:59 Intake Total 120 Balance 120 - Medications Medications: Current Medications Acetaminophen (Tylenol 325mg Tab) 650 mg PO Q6H PRN PRN Reason: Pain, Mild (1-3) Diphenhydramine HCl (Benadryl) 25 mg PO HS PRN PRN Reason: Insomnia Ibuprofen (Motrin Tab) 600 mg PO Q6H PRN PRN Reason: Pain, moderate (4-7) Last Admin: 12/18/18 08:11 Dose: 600 mg Pantoprazole Sodium (Protonix Ec Tab) 40 mg PO 0600 JENNY Last Admin: 12/18/18 05:32 Dose: 40 mg - Labs Labs: 12/18/18 05:00 12/18/18 05:00 PT 12.2 SECONDS (9.4-12.5) 12/15/18 16:21 INR 1.10 12/15/18 16:21 APTT 40.8 Seconds (26.9-38.3) H 12/15/18 16:21 - Additional Findings Additional findings: - Constitutional Appears: Non-toxic, No Acute Distress - Head Exam Head Exam: ATRAUMATIC, NORMOCEPHALIC - Eye Exam Eye Exam: EOMI, Normal Appearance - ENT Exam ENT Exam: Mucous Membranes Moist - Respiratory Exam Respiratory Exam: Clear to Auscultation Bilateral, NORMAL BREATHING PATTERN. absent: Rales, Rhonchi, Wheezes - Cardiovascular Exam Cardiovascular Exam: REGULAR RHYTHM, +S1, +S2. absent: Clicks, Gallop, Rubs - GI/Abdominal Exam GI & Abdominal Exam: Normal Bowel Sounds, Soft. absent: Distended, Firm, Guarding, Tenderness - Extremities Exam Additional comments: pain with ROM of right lower extremity right movement of quadriceps and calves +4/5 strength of right lower extremity, +5/5 of left lower extremity and bilateral upper extremity - Neurological Exam Neurological exam: Alert, CN II-XII Intact, Oriented x3 Additional comments: altered gait - Psychiatric Exam Psychiatric exam: Normal Affect, Normal Mood - Skin Skin Exam: Dry, Intact, Normal Color Assessment and Plan - Assessment and Plan (Free Text) Assessment: Patient is a 78 year old male with past medical history arthritis presented with pain and discomfort of his right hip 3 weeks ago s/p fall, admitted for workup and management of osteoarthritis vs. osteomyelitis Plan: Questionable right hip osteomyelitis Hip/Pelvis X-ray 12/16: No acute findings related to/ accounting for the clinical presentation. Severe degenerative changes right hip. Cyst Aspiration CT 12/16: . CT-guided right hip aspiration. 2-3 cc viscous clear fluid was aspirated. MRI Hip 12/16: 1. Moderate right hip joint effusion with associated synovial debris and hypertrophy most prominent at the inferior aspect of the joint space. Extensive bony signal abnormality seen throughout the right proximal femur including the right femoral head and neck as well as extending to the intertrochanteric region and proximal medullary cavity. Prominent adjacent signal abnormality is seen throughout the acetabulum at its anterior, mid, and posterior aspects as well as extension into the posterior superior right pubic bone. The signal abnormality demonstrates confluent decreased T1 signal with confluent increased STIR signal with associated prominent postcontrast enhancem ent. These findings would be concerning for an acute septic arthritis with associated and resultant acute osteomyelitis of the right acetabulum and right femur. 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 Additional considerations may include osseous metastatic disease versus the sequelae of acute inflammatory changes versus additional etiology. Clinical correlation. 2. Adjacent prominent edema and postcontrast enhancement within the surrounding musculature of the proximal right hip and acetabulum suggestive for a myositis. 3. Again identified is a prominent lobulated cystic lesion seen within posterior inferior right pubic bone/posterior acetabulum measuring 2.7 centimeters best seen on series 5, image 11 demonstrating decreased T1 signal and increased STIR signal with some peripheral postcontrast enhancement. This is of uncertain clini jenifer etiology. This may represent a large intraosseous ganglia versus synovial cyst versus intraosseous cyst versus additional etiology. There appears to be some cortical breakthrough at the lateral margin of the cyst which is better delineated on the CT scan. 4. Additional multilobulated cystic lesions seen within the anterior superior right bony acetabulum measuring up to 1.7 herb timeters demonstrating decreased T1 signal with increased STIR signal with peripheral postcontrast enhancement. This is also of uncertain clinical etiology. This may represent a prominent subchondral cyst and or ganglia and or additional etiology. 5. Moderate insertional tendinopathy of the left iliopsoas tendon on the lesser trochanter. 6. Moderate insertional tendinopathy of the right gluteus tendon attachments on the greater trochanter. 7. Moderate right- sided hamstring origin tendinosis. 8. Mild reactive edema seen within the i nferior right hemisacrum adjacent to the SI joint as demonstrated on series 5, images 10-12; nonspecific. Developing acute infectious and or inflammatory changes at this level cannot be excluded. Clinical correlation. 9. Degenerative changes in the lower lumbar spine. 10. Limited evaluation of the remainder of the bony pelvis demonstrates a 7 millimeter subchondral cyst within the left superior acetabulum. Moderate degenerative changes of the left hip joint space. Moderate insertional tendinopathy of the left gluteus tendon attachments on the greater trochanter - s/p right hip arthrocentesis - Fluid WBC 53. RPR: nonreactive. HIV: nonreactive. Procalcitonin: 0.08. CRP: 6.10. Blood culture: NKTD FTA-ABS, lyme disease, ESR, fungal culture pending - Vancomycin and Rocephin per ID recs - Tylenol and ibuprofen PRN for pain - ID, IR, and orthopedic surgery consulted, recs appreciated - PT Arthritis - continue tylenol and ibuprofen PRN for pain GI/DVT: protonix/SCD Case reviewed with Dr. Elsa Isabel PGY-1 <Keven Hunter - Last Filed: 12/18/18 18:29> Objective - Vital Signs/Intake and Output Vital Signs (last 24 hours): Temp Pulse Resp BP Pulse Ox 98.4 F 75 19 106/56 L 97 12/18/18 16:56 12/18/18 16:56 12/18/18 16:56 12/18/18 16:56 12/18/18 16:56 Intake and Output: 12/18/18 12/18/18 06:59 18:59 Intake Total 120 Balance 120 - Medications Medications: Current Medications Acetaminophen (Tylenol 325mg Tab) 650 mg PO Q6H PRN PRN Reason: Pain, Mild (1-3) Diphenhydramine HCl (Benadryl) 25 mg PO HS PRN PRN Reason: Insomnia Vancomycin HCl (Vancomycin 1gm) 1 gm in 250 mls @ 167 mls/hr IVPB Q12H JENNY; Protocol Last Admin: 12/18/18 17:30 Dose: 167 mls/hr Ceftriaxone Sodium (Rocephin 1 Gram Ivpb) 1 gm in 100 mls @ 100 mls/hr IVPB DAILY JENNY; Protocol Ibuprofen (Motrin Tab) 600 mg PO Q6H PRN PRN Reason: Pain, moderate (4-7) Last Admin: 12/18/18 08:11 Dose: 600 mg Pantoprazole Sodium (Protonix Ec Tab) 40 mg PO 0600 JENNY Last Admin: 12/18/18 05:32 Dose: 40 mg - Labs Labs: 12/18/18 05:00 12/18/18 05:00 PT 12.2 SECONDS (9.4-12.5) 12/15/18 16:21 INR 1.10 12/15/18 16:21 APTT 40.8 Seconds (26.9-38.3) H 12/15/18 16:21 Attending/Attestation - Attestation I have personally seen and examined this patient.: Yes I have fully participated in the care of the patient.: Yes I have reviewed all pertinent clinical information, including history, physical exam and plan: Yes Notes (Text): 12/18/18 18:26 attending note; Patient seen and examined with resident. Patient's by the bedside. Still complaining of some pain On IV Toradol. Patient is alert and awake. Denies any fevers, chills Complaining of right hip and knee pain. Complaining of unsteady gait. Patient is a 78 year old male with past medical history arthritis presented with pain and discomfort of his right hip 3 weeks ago. He reports falling one week prior to pain and discomfort starting. 1. Right hip pain/ septic arthritis; MRI showed septic joint with fluid collection and suspected osteomyelitis. MRI reviewed with radiologist in [place]. Case discussed with orthopedics Dr. Valenzuela in detail. 2. s/p aspiration of R hip by interventional radiology. Blood Culture is negative. Joint fluid cell count is negative for infectious process. Follow-up culture result closely. 3. Orthopedics evaluation appreciated. non weightbearing of right lower ex tremity recommended. 4. Pain management with Motrin and IV Toradol. 5. Septic arthritis by MRI. ID evaluation appreciated. Currently on IV vancomycin and Rocephin. ESR is elevated. CRP normal. Procalcitonin is negative. X-ray of the hip showed severe degenerative changes. Diagnosis, follow-up plan discussed with the patient in detail. 6. Physical therapy evaluation appreciated; patient with unsteady gait. Walking with walker. Subacute rehab recommended. We will follow-up with senior case manager. The diagnosis and treatment plan discussed with patient and patient's in detail.
[2018-12-18] MEDS ORDERED: Vancomycin 1gm in NS 250ml 1 GM/250 ML BAG IVPB SCH ×2 (15:00→19:53)
--- NOTE | 2018-12-18 21:51 | PN ---
DATE: 12/18/2018 SUBJECTIVE: The patient is in bed, room 372, bed 2. No fevers, no chills. PHYSICAL EXAMINATION: VITAL SIGNS: Temperature is 98, blood pressure is 130/60, respiratory rate of 18. HEENT: Unremarkable. NECK: Supple. LUNGS: Have decreased breath sounds. HEART: Normal S1 and S2. ABDOMEN: Soft. LABORATORY DATA: Reveals a white count of 9.6 and sed rate is 52. Chemistries reveal a BUN of 23 and creatinine of 0.8. Procalcitonin is 0.08. C-reactive protein is 6.1 and the patient does have only 63 wbc's on synovial fluid. Microbiology is pending. Thus far, no culture, no positive cultures. REVIEW OF ORDERS: Reveals the patient to be on vancomycin and ceftriaxone. ASSESSMENT AND PLAN: This is a 78-year-old male with osteoarthritis with significant hip pain, had aspiration and biopsy, now empirically started on vancomycin and Rocephin. Pending pathology and biopsy cultures. The patient's imaging of the hip and MRI of the hip on 12/14/2018, acute osteomyelitis in the differential. We will follow with you. Jorje Meneses MD
[2018-12-19] MEDS: Pantoprazole 40 mg EC Tab PO SCH (05:20)
[2018-12-19 06:37] LABS: BASO # 0.03 K/mm3 (0.0-2.0); BASO % 0.3 % (0.0-3.0); EOS # 0.6 (0.0-0.7); EOS % 5.7 % (1.5-5.0); HEMOGLOBIN 12.1 g/dL (14.0-18.0); LYMPH # 1.4 (1.2-3.4); LYMPH % 13.4 % (22.0-35.0); MEAN CELL VOLUME 95.7 fl (80.0-105.0); MEAN CORPUSCULAR HEMOGLOBIN 30.9 pg (25.0-35.0); MEAN CORPUSCULAR HGB CONC 32.3 g/dl (31.0-37.0); MEAN PLATELET VOLUME 11.3 fl (7.0-11.0); MONO % 9.1 % (1.0-6.0); RBC 3.92 10^6/uL (3.5-6.1); RED CELL DISTRIBUTION WIDTH 13.3 % (11.5-14.5); WHITE BLOOD COUNT 10.7 10^3/uL (4.5-11.0)
[2018-12-19 07:31] LABS: ALB/GLOB RATIO 1.2 (1.1-1.8); ALBUMIN 3.3 g/dL (3.0-4.8); ALT/SGPT 21 U/L (7-56); AST/SGOT 19 U/L (17-59); BLOOD UREA NITROGEN 25 mg/dL (7-21); GFR NON-AFRICAN AMERICAN > 60
[2018-12-19] MEDS ORDERED: cefTRIAXone 1 gm 1 GM/100 ML BAG IVPB SCH (10:00)
--- NOTE | 2018-12-19 12:25 | CP.PCM.PN ---
<Malik Mckeon - Last Filed: 12/19/18 13:03> Subjective - Date & Time of Evaluation Date of Evaluation: 12/19/18 Time of Evaluation: 08:40 - Subjective Subjective: Malik Mckeon DO PGY1 Hospitalist Progress Note for Dr Hodgson Patient seen and examined at bedside. He c/o right and knee pain that is controlled with pain meds. He denies fever, chills. No acute events overnight. Still has a limping gait, improving with PT. Objective - Vital Signs/Intake and Output Vital Signs (last 24 hours): Temp Pulse Resp BP Pulse Ox 98 F 67 20 148/75 98 12/19/18 07:50 12/19/18 07:50 12/19/18 07:50 12/19/18 07:50 12/19/18 07:50 Intake and Output: 12/19/18 12/19/18 06:59 18:59 Intake Total 240 Balance 240 - Medications Medications: Current Medications Acetaminophen (Tylenol 325mg Tab) 650 mg PO Q6H PRN PRN Reason: Pain, Mild (1-3) Diphenhydramine HCl (Benadryl) 25 mg PO HS PRN PRN Reason: Insomnia Ibuprofen (Motrin Tab) 600 mg PO Q6H PRN PRN Reason: Pain, moderate (4-7) Last Admin: 12/18/18 08:11 Dose: 600 mg Pantoprazole Sodium (Protonix Ec Tab) 40 mg PO 0600 JENNY Last Admin: 12/19/18 05:20 Dose: 40 mg - Labs Labs: 12/19/18 06:00 12/19/18 06:50 PT 12.2 SECONDS (9.4-12.5) 12/15/18 16:21 INR 1.10 12/15/18 16:21 APTT 40.8 Seconds (26.9-38.3) H 12/15/18 16:21 - Additional Findings Additional findings: - Constitutional Appears: Non-toxic, No Acute Distress - Head Exam Head Exam: ATRAUMATIC, NORMOCEPHALIC - Eye Exam Eye Exam: EOMI, Normal Appearance - ENT Exam ENT Exam: Mucous Membranes Moist - Respiratory Exam Respiratory Exam: Clear to Auscultation Bilateral, NORMAL BREATHING PATTERN. absent: Rales, Rhonchi, Wheezes - Cardiovascular Exam Cardiovascular Exam: REGULAR RHYTHM, +S1, +S2. absent: Clicks, Gallop, Rubs - GI/Abdominal Exam GI & Abdominal Exam: Normal Bowel Sounds, Soft. absent: Distended, Firm, Guarding, Tenderness - Extremities Exam Additional comments: pain with ROM of right lower extremity right movement of quadriceps and calves +4/5 strength of right lower extremity, +5/5 of left lower extremity and bilateral upper extremity - Neurological Exam Neurological exam: Alert, CN II-XII Intact, Oriented x3 Additional comments: altered gait - Psychiatric Exam Psychiatric exam: Normal Affect, Normal Mood - Skin Skin Exam: Dry, Intact, Normal Color Assessment and Plan - Assessment and Plan (Free Text) Assessment: 78 year old male with PMH of arthritis presented with pain and discomfort of his right hip 3 weeks ago s/p fall. MRI showed septic joint with fluid collection Patient admitted for workup of oseteomyelitis Plan: Right septic hip joint: -MRI showed septic joint with fluid collection and suspected osteomyelitis -s/p 2-3cc R hip arthrocentesis. Fluid WBC 53. RPR: nonreactive. HIV: nonrea ctive. Procalcitonin: 0.08. CRP: 6.10. Blood culture: NKTD -[id number], lyme screen-negative, ESR elevated, CRP normal -X-ray of the hip showed severe degenerative changes -Hold antibiotics as per Dr Meneses , pending synovial fluid aspirate & cultures, crystals, gram stain -Continue tylenol PRN and ibuprofen PRN for pain -Orthopedic Surgery, Dr. Vaelnzuela, following- conservative management for now -IR following, Dr. Benitez- femur biopsy scheduled for tomorrow. -ID following, Dr. Meneses -PT following-unsteady gait, uses walker. d/c home with home services Left arm Arthritis -continue tylenol PRN and ibuprofen PRN for pain GI/DVT: protonix/SCD Case reviewed and paln discussed with attending physician, Dr. Gokul Mckeon, DO PGY1 <Paty Hodgson R - Last Filed: 12/20/18 15:49> Objective - Vital Signs/Intake and Output Vital Signs (last 24 hours): Temp Pulse Resp BP Pulse Ox 98.3 F 60 16 131/64 98 12/20/18 15:30 12/20/18 15:30 12/20/18 15:30 12/20/18 15:30 12/20/18 15:30 Intake and Output: 12/20/18 12/20/18 06:59 18:59 Intake Total 360 75 Balance 360 75 - Medications Medications: Current Medications Acetaminophen (Tylenol 325mg Tab) 650 mg PO Q6H PRN PRN Reason: Pain, Mild (1-3) Diphenhydramine HCl (Benadryl) 25 mg PO HS PRN PRN Reason: Insomnia Sodium Chloride (Sodium Chloride 0.45%) 1,000 mls @ 80 mls/hr IV .[id number] JENNY Stop: 12/20/18 21:00 Ibuprofen (Motrin Tab) 600 mg PO Q6H PRN PRN Reason: Pain, moderate (4-7) Last Admin: 12/19/18 19:52 Dose: 600 mg Pantoprazole Sodium (Protonix Ec Tab) 40 mg PO 0600 JENNY Last Admin: 12/20/18 05:58 Dose: 40 mg - Labs Labs: 12/20/18 06:30 12/20/18 06:30 PT 12.2 SECONDS (9.4-12.5) 12/15/18 16:21 INR 1.10 12/15/18 16:21 APTT 40.8 Seconds (26.9-38.3) H 12/15/18 16:21 Attending/Attestation - Attestation I have personally seen and examined this patient.: Yes I have fully participated in the care of the patient.: Yes I have reviewed all pertinent clinical information, including history, physical exam and plan: Yes Notes (Text): Patient seen and examined by me with resident at approximately 10AM on 12/19/18. Case including HPI, physical exam, and assessment and plan discussed with resident. Agree with above with following additions/corrections. Patient is a 78 year old male with past medical history significant for arthritis in right hip pain that presented to the emergency room after being sent in by his doctor after having an MRI of the right hip. Patient states that he is having pain in his right knee today. He states it feels like a "tightness." States it's worse at night. Also with some right hip pain. States ibuprofen is helping with the pain. Patient denies any chest pain or shortness of breath. No fevers or chills. No nausea, vomiting, or abdominal pain. No dysuria. No headaches or dizziness. Last bowel movement was 2 days ago. Physical exam: General: Awake and alert lying in bed in no acute distress HEENT: Normocephalic, atraumatic. Extraocular muscles intact. Pupils equal and reactive, no scleral icterus. Oropharynx is pink and moist. No pharyngeal erythema or exudate appreciated. Neck is supple. Cardiovascular: Normal rhythm. Normal S1 and S2. No murmurs, rubs, or gallops appreciated Pulmonary: Normal respiratory effort. No rhonchi, rales, or wheezing appreciated Gastrointestinal: Soft, nondistended. Nontender. Positive bowel sounds all 4 quadrants. No guarding. Musculoskeletal: Moves all extremities. Decreased range of motion right hip. No calf tenderness. No edema appreciated. Central nervous system: AAO x3 Dermatologic: Skin warm and dry. Assessment and plan: Patient is a 78 year old male with past medical history significant for arthritis in right hip pain that presented to the emergency room after being sent in by his doctor after having an MRI of the right hip. 1. Right hip pain. Severe degenerative joint disease. Possible septic arthritis with fluid collection. Possible proximal femur osteomyelitis. Ortho following, discussed with Dr. Valenzuela, recommendations appreciated. S/P CT guided right hip aspiration 12/16/18. Cultures have been negative. Blood culture with no growth. Antibiotics stopped. Patient for IR biopsy tomorrow of proximal femur. ID recommendations appreciated. Procalcitonin 0.08. Continue PT. Right hip and pelvic xray showed severe degenerative changes right hip. Afebrile. No leukocytosis. 2. Gait instability secondary to pain. Continue PT. Continue Ibuprofen as needed for pain Case was discussed in detail with the patient regarding current diagnosis, study results, and treatment plan. All questions answered.
--- NOTE | 2018-12-19 13:23 | CP.PCM.CON ---
History of Present Illness - History of Present Illness History of Present Illness: Patient is a 78-year-old male with no significant known PMH who presented to the ER at [facility] on 12/16/18 with right hip pain and difficulty weightbearing for almost 2 months. He is well known to Dr. Tolbert who is his primary orthopedic surgeon as an outpatient, Dr. Tolbert is currently away and I am the orthopedic surgeon on- call managing this patient's care until his primary orthopedic surgeon returns. Progressively worsening right hip pain over the past few years. Tripped and fell 2 months ago with progressively worsening right hip pain. Pain continued to worsen, so he saw his PCP, . He was then referred for CT and ER evaluation same day on 11/04/18. He then saw Dr. Tolbert who ordered MRI of hip at that time, and after receiving results, called patient and primary doctor to have patient proceed to ER at that time. Patient denies any other trauma. Denies foreign travel. Denies fever/c hills/cough/cold recently. No recent dysuria. No prior hip pain prior to this fall. he is a community ambulator, very active, very independent with ADLs and function. He uses a cane as his assist device on occasion during ambulation but most of the time ambulates independently without restrictions. SUMMARY of imaging and care at [facility] since admission: Right hip CT done 11/04/[address] [facility] was read as: #1 no acute displaced fracture #2 2.5 x 2.6 cm subarticular osteolytic lesion in the right anterior ischium with break in the inferior lateral cortical margin. Differential considerations include large geode, metastasis and lymphoma. Clinical follow-up is advised. Correlation with MRI without and with IV contrast is recommended #3 moderate degenerative osteoarthritis Right hip MRI done12/14/[address] [facility] was read as: 1. Moderate right hip joint effusion with associated synovial debris and hypertrophy most prominent at the inferior aspect of the joint space. Extensive bony signal abnormality seen throughout the right proximal femur including the right femoral head and neck as well as extending to the intertrochanteric region and proximal medullary cavity. Prominent adjacent signal abnormality is seen throughout the acetabulum at its anterior, mid, and posterior aspects as well as extension into the posterior superior right pubic bone. The signal abnormality demonstrates confluent decreased T1 signal with confluent increased STIR signal with associated prominent postcontrast enhancement. These findings would be concerning for an acute septic arthritis with associated and resultant acute osteomyelitis of the right acetabulum and right femur. 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 Additional considerations may include osseous metastatic disease versus the sequelae of acute inflammatory changes versus additional etiology. Clinical correlation. 2. Adjacent prominent edema and postcontrast enhancement within the surrounding musculature of the proximal right hip and acetabulum suggestive for a myositis. 3. Again identified is a prominent lobulated cystic lesion seen within posterior inferior right pubic bone/posterior acetabulum measuring 2.7 centimeters best seen on series 5, image 11 demonstrating decreased T1 signal and increased STIR signal with some peripheral postcontrast enhancement. This is of uncertain clinical etiology. This may represent a large intraosseous ganglia versus sy novial cyst versus intraosseous cyst versus additional etiology. There appears to be some cortical breakthrough at the lateral margin of the cyst which is better delineated on the CT scan. 4. Additional multilobulated cystic lesions seen within the anterior superior right bony acetabulum measuring up to 1.7 centimeters demonstrating decreased T1 signal with increased STIR signal with peripheral postcontrast enhancement. This is also of uncertain clinical etiology. This may represent a prominent subchondral cyst and or ganglia and or additional etiology. 5. Moderate insertional tendinopathy of the left iliopsoas tendon on the lesser trochanter. 6. Moderate insertional tendinopathy of the right gluteus tendon attachments on the greater trochanter. 7. Moderate right-sided hamstring origin tendinosis. 8. Mild reactive edema seen within the inferior right hemisacrum adjacent to the SI joint as demonstrated on series 5, images 10-12; nonspecific. Developing acute infectious and or inflammatory changes at this level cannot be excluded. Clinical correlation. 9. Degenerative changes in the lower lumbar spine. 10. Limited evaluation of the remainder of the bony pelvis demonstrates a 7 millimeter subchondral cyst within the left superior acetabulum. Moderate degenerative changes of the left hip joint space. Moderate insertional tendinopathy of the left gluteus tendon attachments on the greater trochanter. Bone scan done at [facility] on 12/15/18 was read as: Negative three phase bone scan for acute osseous process. Intense accumulation of radionuclide only seen on the 3 hr delayed images corresponding findings in the right acetabulum on recent cross-sectional imaging studies on my review of the imaging provided, the MRI shows definite impressive signal change at the proximal femur that can be interpreted as stress reaction versus osteomyelitis, there was concern for increased synovial fluid seen and possible septic joint. Patient underwent right hip fluoroscopic and CT-guided aspiration by interventional radiology at [facility] on 12/16/[address] Abdon Benitez, he successfully aspirated 2-3 cc clear regular looking synovial fluid. The synovial fluid was sent for analysis including cell count and stat Gram stain with cultures which have all come back negative. Essentially, right hip septic arthritis was ruled out. infectious disease consult initially started IV antibiotics which was then discontinued. Orthopedic consultation was placed, I personally evaluated and treated the patient at [facility] as an inpatient on 12/19/18. He was seen by orthopedic PA and orthopedic team on 12/16/18 with initial recommendations placed under my guidance. Past Patient History - Infectious Disease Hx of Infectious Diseases: None - Past Social History Smoking Status: Current Some Days Smoker - CARDIAC Hx Cardiac Disorders: No - PULMONARY Hx Respiratory Disorders: Yes (SMOKES 5 CIGARETTES) - NEUROLOGICAL Hx Neurological Disorder: No - HEENT Hx HEENT Problems: (WEARS RX GLASSES) - MUSCULOSKELETAL/RHEUMATOLOGICAL Hx Arthritis: Yes (unspecified) - GENITOURINARY/GYNECOLOGICAL Hx Genitourinary Disorders: Yes (VASECTOY 1970) - PSYCHIATRIC Hx Psychophysiologic Disorder: No Hx Substance Use: No - SURGICAL HISTORY Hx Surgeries: No - ANESTHESIA Hx Anesthesia: Yes Hx Anesthesia Reactions: No Meds Allergies/Adverse Reactions: Allergies Allergy/AdvReac Type Severity Reaction Status Date / Time No Known Allergies Allergy Verified 12/15/18 20:27 - Medications Medications: Current Medications Acetaminophen (Tylenol 325mg Tab) 650 mg PO Q6H PRN PRN Reason: Pain, Mild (1-3) Diphenhydramine HCl (Benadryl) 25 mg PO HS PRN PRN Reason: Insomnia Ibuprofen (Motrin Tab) 600 mg PO Q6H PRN PRN Reason: Pain, moderate (4-7) Last Admin: 12/18/18 08:11 Dose: 600 mg Pantoprazole Sodium (Protonix Ec Tab) 40 mg PO 0600 JENNY Last Admin: 12/19/18 05:20 Dose: 40 mg Physical Exam - Extremities Exam Additional comments: right lower extremity: hip:No warmth, no erythema, no swelling, skin intact, no instability + + TTP with deep palpation at proximal femur and thigh along the anterior region of hip. Otherwise no TTP. able to tolerate painless arc of range of motion at hip from 0-80 flexion. 0-10 internal rotation. 0-10 external rotation. 0 extension. He had pain with high flexion and internal rotation past 80 flexion. +5/5 motor strength hip election/extension, knee flexion/extension, ankle dorsiflexion/plantar flexion, toes up and down Sensory intact L2-S1, deep peroneal nerve/tibial nerve/superficial peroneal nerve 2+ dorsalis pedis pulse and brisk cap refill all toes Calves soft and nontender bilateral Left lower extremity: No warmth, no erythema, no swelling, skin intact, no instability Full range of motion at all joints without pain +5/5 motor strength hip election/extension, knee flexion/extension, ankle dorsiflexion/plantar flexion, toes up and down Sensory intact L2-S1, deep peroneal nerve/tibial nerve/superficial peroneal nerve 2+ dorsalis pedis pulse and brisk cap refill all toes Results - Vital Signs Recent Vital Signs: Last Vital Signs Temp 98 F 12/19/18 07:50 Pulse 67 12/19/18 07:50 Resp 20 12/19/18 07:50 BP 148/75 12/19/18 07:50 Pulse Ox 98 12/19/18 07:50 - Labs Result Diagrams: 12/19/18 06:00 12/19/18 06:50 Labs: Laboratory Results - last 24 hr 12/16/18 12/16/18 12/19/18 11:00 11:00 06:00 WBC 10.7 RBC 3.92 Hgb 12.1 L Hct 37.5 L MCV 95.7 MCH 30.9 MCHC 32.3 RDW 13.3 Plt Count 232 MPV 11.3 H Neut % (Auto) 71.5 H Lymph % (Auto) 13.4 L Butts % (Auto) 9.1 H Eos % (Auto) 5.7 H Baso % (Auto) 0.3 Lymph # (Auto) 1.4 Butts # (Auto) 1.0 H Eos # (Auto) 0.6 Baso # (Auto) 0.03 Absolute Neuts (auto) 7.62 H Sodium Potassium Chloride Carbon Dioxide Anion Gap BUN Creatinine Est GFR ( Amer) Est GFR (Non-Af Amer) Random Glucose Calcium Total Bilirubin AST ALT Alkaline Phosphatase Total Protein Albumin Globulin Albumin/Globulin Ratio T.pallidum Ab (FTA-ABS) Nonreactive Lyme Disease Screen <0.90 12/19/18 06:50 WBC RBC Hgb Hct MCV MCH MCHC RDW Plt Count MPV Neut % (Auto) Lymph % (Auto) Butts % (Auto) Eos % (Auto) Baso % (Auto) Lymph # (Auto) Butts # (Auto) Eos # (Auto) Baso # (Auto) Absolute Neuts (auto) Sodium 141 Potassium 4.7 Chloride 109 H Carbon Dioxide 28 Anion Gap 10 BUN 25 H Creatinine 0.7 L Est GFR ( Amer) > 60 Est GFR (Non-Af Amer) > 60 Random Glucose 90 Calcium 9.0 Total Bilirubin 0.3 AST 19 ALT 21 Alkaline Phosphatase 79 Total Protein 6.0 Albumin 3.3 Globulin 2.7 Albumin/Globulin Ratio 1.2 T.pallidum Ab (FTA-ABS) Lyme Disease Screen Assessment & Plan (1) Osteomyelitis Assessment and Plan: patient is a 78-year-old male, long-standing right hip pain progressively worsening significantly over the past 2 months. DX = R hip #1 proximal femur osteomyelitis versus stress fractures #2 underlying moderate to severe DJD #3 question of septic arthritis s/p CT-guided right hip aspiration by IR on 12/16/18, 2-3 cc normal synovial fluid aspirated successfully Essentially septic joint ruled out Plan: R hip: -Clinically, proximal femur/femoral neck stress fracture versus osteomyelitis -Very low suspicion for septic joint, successful CT-guided aspiration shows normal cell count and negative cultures/Gram stain -At this point, definitive diagnosis for proximal femur osteomyelitis can be obtained with IR performing proximal femur biopsy and sending tissue for pathology and microbiology evaluation -In the setting that this is a true stress fracture proximal femur, the most definitive and best treatment option with underlying DJD as advanced as he has, would be to perform a total hip arthroplasty for which there has to be a high degree of reliability/confirmation that there is no acute infectious process happening at the proximal femur bone. Therefore, a biopsy of the proximal femur is the best next step in his treatment plan. -We can also consider white blood cell tagged bone scan as an adjunct/supplemental imaging. -I had a long discussion with ID quality consultant, we are in agreement with this plan. We also agree to hold IV antibiotics until the proximal femur biopsy specimen has been obtained. -There should also be consideration to perform the PICC line placement for long- term IV antibiotics treatment for presumed proximal femur osteomyelitis medical treatment in the same setting as the biopsy at interventional radiology at [facility]. -In the interim should be strict nonweightbearing right lower extremity -Physical therapy = ambulation with walker, out of bed as much as possible, strict nonweightbearing R LE -We will monitor his progress -Hold DVT prophylaxis for possible procedure with IR tomorrow -Please contact me directly with any questions or concerns, Thank you for allowing me to contribute to the care of your patient Peri Valenzuela MD orthopedic surgery Status: Acute
--- NOTE | 2018-12-20 01:24 | PN ---
DATE: 12/19/2018 SUBJECTIVE: The patient is in bed, in no acute distress, nontoxic. PHYSICAL EXAMINATION: VITAL SIGNS: Temperature is 98, blood pressure is 130/70, respiratory rate is 16. HEENT: Unremarkable. NECK: Supple. LUNGS: Have decreased breath sounds. HEART: Normal S1 and S2. ABDOMEN: Soft. LABORATORY DATA: Reveals a white count of 10,700, hemoglobin of 12, platelets of 232, and sed rate is 52. BUN of 25, creatinine of 0.7, procalcitonin 0.08. Fluid from joints of the synovial fluid shows 63 wbc's. HIV is negative. Lyme is negative. RPR and FTA is negative. Microbiology reveals no growth from the hip culture and no blood culture. Blood cultures are no growth. Currently, the patient is off of antibiotics. ASSESSMENT AND PLAN: This is a 78-year-old male with osteoarthritis and hip pain. Aspiration of the joint is negative for joint infection. However, the imaging shows osteomyelitis of the femur. The patient is scheduled for bone biopsy and the patient does have moderate hip joint effusion, synovial debris, hypertrophy. We will keep the patient off of antibiotics, pending femur bone biopsy, proximal femur osteomyelitis versus stress fracture, basic etiology for bone biopsy, should send for acid-fast bacilli smears and cultures, fungal smears and cultures, gram stain and routine cultures and pathology, currently off of antibiotics. We will follow with you. Case discussed with Dr. Valenzuela and Dr. Malik Mckeon. Review of orders reveals Dr. Abdon Benitez is on consultation for femur biopsy. Jorje Meneses MD
[2018-12-20] MEDS: Pantoprazole 40 mg EC Tab PO SCH (05:58)
--- NOTE | 2018-12-20 06:14 | CP.PCM.PN ---
<Malik Mckeon - Last Filed: 12/20/18 14:56> Subjective - Date & Time of Evaluation Date of Evaluation: 12/20/18 Time of Evaluation: 07:10 - Subjective Subjective: Malik Mckeon DO PGY1 Hospitalist Progress Note for Dr Hodgson Patient seen and examined at bedside. His reports that his right and knee pain better today and controlled with pain meds. He denies fever, chills. No acute events overnight. Objective - Vital Signs/Intake and Output Vital Signs (last 24 hours): Temp Pulse Resp BP Pulse Ox 98.5 F 75 20 130/70 97 12/19/18 16:44 12/19/18 16:44 12/19/18 16:44 12/19/18 16:44 12/19/18 16:44 Intake and Output: 12/19/18 12/20/18 18:59 06:59 Intake Total 360 Balance 360 - Medications Medications: Current Medications Acetaminophen (Tylenol 325mg Tab) 650 mg PO Q6H PRN PRN Reason: Pain, Mild (1-3) Diphenhydramine HCl (Benadryl) 25 mg PO HS PRN PRN Reason: Insomnia Ibuprofen (Motrin Tab) 600 mg PO Q6H PRN PRN Reason: Pain, moderate (4-7) Last Admin: 12/19/18 19:52 Dose: 600 mg Pantoprazole Sodium (Protonix Ec Tab) 40 mg PO 0600 JENNY Last Admin: 12/20/18 05:58 Dose: 40 mg - Labs Labs: 12/19/18 06:00 12/19/18 06:50 PT 12.2 SECONDS (9.4-12.5) 12/15/18 16:21 INR 1.10 12/15/18 16:21 APTT 40.8 Seconds (26.9-38.3) H 12/15/18 16:21 - Additional Findings Additional findings: - Constitutional Appears: Non-toxic, No Acute Distress - Head Exam Head Exam: ATRAUMATIC, NORMOCEPHALIC - Eye Exam Eye Exam: EOMI, Normal Appearance - ENT Exam ENT Exam: Mucous Membranes Moist - Respiratory Exam Respiratory Exam: Clear to Auscultation Bilateral, NORMAL BREATHING PATTERN. absent: Rales, Rhonchi, Wheezes - Cardiovascular Exam Cardiovascular Exam: REGULAR RHYTHM, +S1, +S2. absent: Clicks, Gallop, Rubs - GI/Abdominal Exam GI & Abdominal Exam: Normal Bowel Sounds, Soft. absent: Distended, Firm, Guarding, Tenderness - Extremities Exam Additional comments: pain with ROM of right lower extremity right movement of quadriceps and calves +4/5 strength of right lower extremity, +5/5 of left lower extremity and bilateral upper extremity - Neurological Exam Neurological exam: Alert, CN II-XII Intact, Oriented x3 Additional comments: altered gait - Psychiatric Exam Psychiatric exam: Normal Affect, Normal Mood - Skin Skin Exam: Dry, Intact, Normal Color Assessment and Plan - Assessment and Plan (Free Text) Assessment: 78 year old male with PMH of arthritis presented with pain and discomfort of his right hip 3 weeks ago s/p fall. MRI showed septic joint with fluid collection Patient admitted for workup of oseteomyelitis Plan: Right septic hip joint: -MRI showed septic joint with fluid collection and suspected osteomyelitis -patient afebrile, no leukocytosis, procal negative -s/p 2-3cc R hip arthrocentesis. Fluid WBC 53. RPR: nonreactive. HIV: nonreactive. Procalcitonin: 0.08. CRP: 6.10. Blood culture: NGTD -[id number], lyme screen-negative, ESR elevated, CRP normal -X-ray of the hip showed severe degenerative changes -Hold antibiotics as per Dr Meneses -Continue tylenol PRN and ibuprofen PRN for pain -Orthopedic Surgery, Dr. Valenzuela, following- conservative management for now -IR following, Dr. Benitez- femur biopsy scheduled later today -ID following, Dr. Meneses -PT following-unsteady gait, uses walker. d/c home with home services Left arm Arthritis -continue tylenol PRN and ibuprofen PRN for pain GI/DVT: protonix/SCD Case reviewed and paln discussed with attending physician, Dr. Gokul Mckeon, DO PGY1 <Paty Hodgson R - Last Filed: 12/22/18 17:37> Objective - Vital Signs/Intake and Output Vital Signs (last 24 hours): Temp Pulse Resp BP Pulse Ox 98.3 F 78 19 104/66 98 12/22/18 16:58 12/22/18 16:58 12/22/18 16:58 12/22/18 16:58 12/22/18 16:58 Intake and Output: 12/22/18 12/22/18 06:59 18:59 Intake Total 240 Balance 240 - Medications Medications: Current Medications Acetaminophen (Tylenol 325mg Tab) 650 mg PO Q6H PRN PRN Reason: Pain, Mild (1-3) Last Admin: 12/21/18 18:15 Dose: 650 mg Diphenhydramine HCl (Benadryl) 25 mg PO HS PRN PRN Reason: Insomnia Ibuprofen (Motrin Tab) 600 mg PO Q6H PRN PRN Reason: Pain, moderate (4-7) Last Admin: 12/22/18 05:57 Dose: 600 mg Pantoprazole Sodium (Protonix Ec Tab) 40 mg PO 0600 JENNY Last Admin: 12/22/18 05:54 Dose: 40 mg - Labs Labs: 12/22/18 06:30 12/22/18 06:30 PT 12.2 SECONDS (9.4-12.5) 12/15/18 16:21 INR 1.10 12/15/18 16:21 APTT 40.8 Seconds (26.9-38.3) H 12/15/18 16:21 Attending/Attestation - Attestation I have personally seen and examined this patient.: Yes I have fully participated in the care of the patient.: Yes I have reviewed all pertinent clinical information, including history, physical exam and plan: Yes Notes (Text): Patient seen and examined by me with resident at approximately 11:15AM on 12/20/18. Case including HPI, physical exam, and assessment and plan discussed with resident. Agree with above with following additions/corrections. Patient is a 78 year old male with past medical history significant for arthritis in right hip pain that presented to the emergency room after being sent in by his doctor after having an MRI of the right hip. Patient states that he is feeling ok. States he feels hungry. States he has not eaten secondary to "Im waiting for by biopsy." Patient still with right hip jennifer n. Ibuprofen is helping with the pain. Patient denies any chest pain or shortness of breath. No fevers or chills. No nausea, vomiting, or abdominal pain. No dysuria. No headaches or dizziness. Patient is having bowel movements now. Physical exam: General: Awake and alert lying in bed in no acute distress HEENT: Normocephalic, atraumatic. Extraocular muscles intact. Pupils equal and reactive, no scleral icterus. Oropharynx is pink and moist. No pharyngeal erythema or exudate appreciated. Neck is supple. Cardiovascular: Normal rhythm. Normal S1 and S2. No murmurs, rubs, or gallops appreciated Pulmonary: Normal respiratory effort. No rhonchi, rales, or wheezing appreciated Gastrointestinal: Soft, nondistended. Nontender. Positive bowel sounds all 4 quadrants. No guarding. Musculoskeletal: Moves all extremities. Decreased range of motion right hip. No calf tenderness. No edema appreciated. Central nervous system: AAO x3 Dermatologic: Skin warm and dry. Assessment and plan: Patient is a 78 year old male with past medical history significant for arthritis in right hip pain that presented to the emergency room after being sent in by his doctor after having an MRI of the right hip. 1. Right hip pain. Severe degenerative joint disease. Possible septic arthritis with fluid collection. Possible proximal femur osteomyelitis. Ortho recommendations appreciated. S/P CT guided right hip aspiration 12/16/18. Cultures have been negative. Blood culture with no growth. Antibiotics stopped. IR biopsy today of proximal femur. ID recommendations appreciated. Procalcitonin 0.08. Continue PT. Right hip and pelvic xray showed severe degenerative changes right hip. Afebrile. No leukocytosis. 2. Gait instability secondary to pain. Continue PT. Continue Ibuprofen as needed for pain Case was discussed in detail with the patient regarding current diagnosis, study results, and treatment plan. All questions answered.
[2018-12-20 07:08] LABS: BASO # 0.03 K/mm3 (0.0-2.0); BASO % 0.3 % (0.0-3.0); EOS # 0.6 (0.0-0.7); HEMOGLOBIN 12.6 g/dL (14.0-18.0); LYMPH # 1.3 (1.2-3.4); LYMPH % 13.3 % (22.0-35.0); MEAN CELL VOLUME 94.1 fl (80.0-105.0); MEAN PLATELET VOLUME 11.2 fl (7.0-11.0); MONO % 10.1 % (1.0-6.0); RBC 4.06 10^6/uL (3.5-6.1); RED CELL DISTRIBUTION WIDTH 13.3 % (11.5-14.5); WHITE BLOOD COUNT 9.6 10^3/uL (4.5-11.0)
[2018-12-20 07:25] LABS: ALB/GLOB RATIO 1.2 (1.1-1.8); ALBUMIN 3.5 g/dL (3.0-4.8); ALT/SGPT 15 U/L (7-56); AST/SGOT 25 U/L (17-59); BLOOD UREA NITROGEN 18 mg/dL (7-21); GFR NON-AFRICAN AMERICAN > 60
[2018-12-20] MEDS ORDERED: cefTRIAXone 1 gm 1 GM/100 ML BAG IVPB SCH (10:00)
[2018-12-20] MEDS ORDERED: Sodium Chloride 0.9% 1,000 ML IV SCH (11:30)
[2018-12-20] MEDS ORDERED: Midazolam 2 MG/2 ML VIAL ONE (13:46)
[2018-12-20] MEDS ORDERED: Midazolam 2 MG/2 ML VIAL IVP ONE (14:25)
[2018-12-20] MEDS ORDERED: Sodium Chloride 0.45% 1,000 ML IV SCH (14:45)
[2018-12-20] MEDS ORDERED: Lidocaine 1% 5ml Abboject ONE (15:13)
--- NOTE | 2018-12-20 16:48 | CT ---
PROCEDURE: 1. CT-guided right proximal femur biopsy 2. CT-guided right acetabulum biopsy HISTORY: Right hip pain. Possible septic arthritis. Right hip aspiration negative. Evaluate right femur and right acetabulum for osteomyelitis, degenerative joint disease, or possible stress fracture. PHYSICIAN(S): Abdon Benitez MD. TECHNIQUE: The relative risks and indications of the procedure were explained to the patient and consent obtained. The patient was placed supine on the CT scanner and preliminary images through the pelvis obtained. Conscious sedation and monitoring were provided throughout the procedure by a nurse. The right acetabulum and right femoral head rule localized with CT imaging. The areas prepped and draped usual sterile fashion. Conscious sedation monitoring were provided throughout the procedure by a nurse. Initially the on control needle was advanced to the right femoral head and its position confirmed with CT. A single core biopsy was performed. The specimen was and specimen sent for histology and microbiology. Next a 2nd pass with the on control needle was performed of the right acetabulum. Once again the core specimen was and sent for histology and microbiology. The patient tolerated the procedure well. IMPRESSION: 1. CT-guided right proximal femur biopsy. 2. CT-guided right acetabulum biopsy. 3. Specimens were sent to histology and microbiology.
--- NOTE | 2018-12-20 22:27 | PN ---
DATE: 12/20/2018 SUBJECTIVE: The patient is seen in bed, in no acute distress, and nontoxic. OBJECTIVE: VITAL SIGNS: Temperature is 97, blood pressure is 112/70, and respiratory rate of 20. HEENT: Unremarkable. NECK: Supple. LUNGS: Have decreased breath sounds. HEART: Normal S1 and S2. ABDOMEN: Soft. LABORATORY EXAMINATION: Reveals a white count of 9.6, hemoglobin of 12, BUN of 18, creatinine of 0.8, and procalcitonin of 0.08. Serology is negative. Microbiology thus far no growth. REVIEW OF ORDERS: Reveal the patient to be off of antibiotics. Dr. Abdon Benitez's CAT scan directed bone biopsy procedure is noted. ASSESSMENT AND PLAN: This is a 78-year-old male with osteoarthritis, hip pain, aspiration of the joint is negative now femur bone biopsy, currently off of antibiotics. We will await for biopsy, pathology and cultures. smears and cultures and routine Gram-stain and cultures are noted. Jorje Meneses MD
[2018-12-21] MEDS: Pantoprazole 40 mg EC Tab PO SCH (06:48)
[2018-12-21 06:53] LABS: ALB/GLOB RATIO 1.2 (1.1-1.8); ALBUMIN 3.5 g/dL (3.0-4.8); ALT/SGPT 17 U/L (7-56); AST/SGOT 36 U/L (17-59); BASO # 0.01 K/mm3 (0.0-2.0); BASO % 0.1 % (0.0-3.0); BLOOD UREA NITROGEN 17 mg/dL (7-21); EOS # 0.4 (0.0-0.7); EOS % 3.6 % (1.5-5.0); GFR NON-AFRICAN AMERICAN > 60; HEMOGLOBIN 12.4 g/dL (14.0-18.0); LYMPH % 9.9 % (22.0-35.0); MEAN CELL VOLUME 96.9 fl (80.0-105.0); MEAN CORPUSCULAR HEMOGLOBIN 31.8 pg (25.0-35.0); MEAN CORPUSCULAR HGB CONC 32.8 g/dl (31.0-37.0); MEAN PLATELET VOLUME 11.5 fl (7.0-11.0); MONO % 10.5 % (1.0-6.0); RBC 3.9 10^6/uL (3.5-6.1); RED CELL DISTRIBUTION WIDTH 13.3 % (11.5-14.5); WHITE BLOOD COUNT 9.8 10^3/uL (4.5-11.0)
--- NOTE | 2018-12-21 12:38 | CP.PCM.PN ---
<Malik Mckeon - Last Filed: 12/21/18 12:35> Subjective - Date & Time of Evaluation Date of Evaluation: 12/21/18 Time of Evaluation: 07:50 - Subjective Subjective: Malik Mckeon DO PGY1 Hospitalist Progress Note for Dr Hodgson Patient seen and examined at bedside. His reports right leg pain s/p biospy procedure yesterday. Pain is improving today with pain meds. He denies fever, chills. No acute events overnight. Objective - Vital Signs/Intake and Output Vital Signs (last 24 hours): Temp Pulse Resp BP Pulse Ox 98.3 F 68 18 118/62 96 12/21/18 06:00 12/21/18 06:00 12/21/18 06:00 12/21/18 06:00 12/21/18 06:00 Intake and Output: 12/21/18 12/21/18 06:59 18:59 Intake Total 800 Balance 800 - Medications Medications: Current Medications Acetaminophen (Tylenol 325mg Tab) 650 mg PO Q6H PRN PRN Reason: Pain, Mild (1-3) Diphenhydramine HCl (Benadryl) 25 mg PO HS PRN PRN Reason: Insomnia Ibuprofen (Motrin Tab) 600 mg PO Q6H PRN PRN Reason: Pain, moderate (4-7) Last Admin: 12/20/18 20:15 Dose: 600 mg Pantoprazole Sodium (Protonix Ec Tab) 40 mg PO 0600 JENNY Last Admin: 12/21/18 06:48 Dose: 40 mg - Labs Labs: 12/21/18 06:10 12/21/18 06:10 PT 12.2 SECONDS (9.4-12.5) 12/15/18 16:21 INR 1.10 12/15/18 16:21 APTT 40.8 Seconds (26.9-38.3) H 12/15/18 16:21 - Additional Findings Additional findings: - Constitutional Appears: Non-toxic, No Acute Distress - Head Exam Head Exam: ATRAUMATIC, NORMOCEPHALIC - Eye Exam Eye Exam: EOMI, Normal Appearance - ENT Exam ENT Exam: Mucous Membranes Moist - Respiratory Exam Respiratory Exam: Clear to Auscultation Bilateral, NORMAL BREATHING PATTERN. absent: Rales, Rhonchi, Wheezes - Cardiovascular Exam Cardiovascular Exam: REGULAR RHYTHM, +S1, +S2. absent: Clicks, Gallop, Rubs - GI/Abdominal Exam GI & Abdominal Exam: Normal Bowel Sounds, Soft. absent: Distended, Firm, Guarding, Tenderness - Extremities Exam Additional comments: pain with ROM of right lower extremity right movement of quadriceps and calves +4/5 strength of right lower extremity, +5/5 of left lower extremity and bilateral upper extremity - Neurological Exam Neurological exam: Alert, CN II-XII Intact, Oriented x3 Additional comments: altered gait - Psychiatric Exam Psychiatric exam: Normal Affect, Normal Mood - Skin Skin Exam: Dry, Intact, Normal Color Assessment and Plan - Assessment and Plan (Free Text) Assessment: 78 year old male with PMH of arthritis presented with pain and discomfort of his right hip 3 weeks ago s/p fall. MRI showed septic joint with fluid collection. Patient admitted for workup of oseteomyelitis Plan: Right septic hip joint: -s/p femur biopsy. f/u pathology report -MRI showed septic joint with fluid collection and suspected osteomyelitis -patient afebrile, no leukocytosis, procal negative -s/p 2-3cc R hip arthrocentesis. Fluid WBC 53. RPR: nonreactive. HIV: nonreactive. Procalcitonin: 0.08. CRP: 6.10. Blood culture: NGTD -[id number], lyme screen-negative, ESR elevated, CRP normal -X-ray of the hip showed severe degenerative changes -Hold antibiotics as per Dr Meneses -Continue tylenol PRN and ibuprofen PRN for pain -Orthopedic Surgery, Dr. Valenzuela, following- conservative management for now -IR following, Dr. Benitez -ID following, Dr. Meneses -PT following-unsteady gait, uses walker. d/c home with home services Left arm Arthritis -continue tylenol PRN and ibuprofen PRN for pain GI/DVT: protonix/SCD Regular diet Case reviewed and paln discussed with attending physician, Dr. Gokul Mckeon, DO PGY1 <Paty Hdogson R - Last Filed: 12/23/18 08:08> Objective - Vital Signs/Intake and Output Vital Signs (last 24 hours): Temp Pulse Resp BP Pulse Ox 98.3 F 78 19 104/66 98 12/22/18 16:58 12/22/18 16:58 12/22/18 16:58 12/22/18 16:58 12/22/18 16:58 Intake and Output: 12/23/18 12/23/18 06:59 18:59 Intake Total 120 Balance 120 - Medications Medications: Current Medications Acetaminophen (Tylenol 325mg Tab) 650 mg PO Q6H PRN PRN Reason: Pain, Mild (1-3) Last Admin: 12/21/18 18:15 Dose: 650 mg Diphenhydramine HCl (Benadryl) 25 mg PO HS PRN PRN Reason: Insomnia Last Admin: 12/22/18 20:44 Dose: 25 mg Ibuprofen (Motrin Tab) 600 mg PO Q6H PRN PRN Reason: Pain, moderate (4-7) Last Admin: 12/22/18 20:44 Dose: 600 mg Pantoprazole Sodium (Protonix Ec Tab) 40 mg PO 0600 JENNY Last Admin: 12/23/18 06:44 Dose: 40 mg - Labs Labs: 12/22/18 06:30 12/22/18 06:30 PT 12.2 SECONDS (9.4-12.5) 12/15/18 16:21 INR 1.10 12/15/18 16:21 APTT 40.8 Seconds (26.9-38.3) H 12/15/18 16:21 Attending/Attestation - Attestation I have personally seen and examined this patient.: Yes I have fully participated in the care of the patient.: Yes I have reviewed all pertinent clinical information, including history, physical exam and plan: Yes Notes (Text): Patient seen and examined by me with resident at approximately 10:10AM on 12/21/18. Case including HPI, physical exam, and assessment and plan discussed with resident. Agree with above with following additions/corrections. Patient is a 78 year old male with past medical history significant for arthritis in right hip pain that presented to the emergency room after being sent in by his doctor after having an MRI of the right hip. Patient states that he feels ok. States that he he still has right hip pain with worse pain at night time. States he was having some right groin pain post biopsy but it improved with ibuprofen. No chest pain or shortness of breath. No fevers or chills. No nausea, vomiting, or abdominal pain. No dysuria. No headaches or dizziness. Patient is having bowel movements. Physical exam: General: Awake and alert lying in bed in no acute distress HEENT: Normocephalic, atraumatic. Extraocular muscles intact. Pupils equal and reactive, no scleral icterus. Oropharynx is pink and moist. No pharyngeal erythema or exudate appreciated. Neck is supple. Cardiovascular: Normal rhythm. Normal S1 and S2. No murmurs, rubs, or gallops appreciated Pulmonary: Normal respiratory effort. No rhonchi, rales, or wheezing appreciated Gastrointestinal: Soft, nondistended. Nontender. Positive bowel sounds all 4 quadrants. No guarding. Musculoskeletal: Moves all extremities. Decreased range of motion right hip. No calf tenderness. No edema appreciated. Central nervous system: AAO x3 Dermatologic: Skin warm and dry. Assessment and plan: Patient is a 78 year old male with past medical history significant for arthritis in right hip pain that presented to the emergency room after being sent in by his doctor after having an MRI of the right hip. 1. Right hip pain. Severe degenerative joint disease. Possible septic arthritis with fluid collection. Possible proximal femur osteomyelitis. Ortho recomm endations appreciated. S/P CT guided right hip aspiration 12/16/18. Cultures have been negative. Blood culture with no growth. Antibiotics stopped. IR biopsy 11/20/18 of proximal femur and right acetabulum, pending cultures and path report. ID recommendations appreciated. Procalcitonin 0.08. Continue PT. Right hip and pelvic xray showed severe degenerative changes right hip. MRI as previously stated. Afebrile. No leukocytosis. 2. Gait instability secondary to pain. Continue PT. Continue Ibuprofen as needed for pain Case was discussed in detail with the patient regarding current diagnosis, study results, and treatment plan. All questions answered.
--- NOTE | 2018-12-21 15:31 | CP.PCM.PN ---
Subjective - Date & Time of Evaluation Date of Evaluation: 12/21/18 Time of Evaluation: 15:28 - Subjective Subjective: Orthopedic follow up Dr. Valenzuela patient states he still has a lot of pain in his hip, but that he is feeling a little better. No new complaints. Denies numbness/tingling. Review of Systems - Review of Systems All systems: reviewed and no additional remarkable complaints except - Musculoskeletal Musculoskeletal: As Par HPI - Neurological Neurological: As Per HPI Objective - Vital Signs/Intake and Output Vital Signs (last 24 hours): Temp Pulse Resp BP Pulse Ox 98.3 F 68 18 118/62 96 12/21/18 06:00 12/21/18 06:00 12/21/18 06:00 12/21/18 06:00 12/21/18 06:00 Intake and Output: 12/21/18 12/21/18 06:59 18:59 Intake Total 800 Balance 800 - Medications Medications: Current Medications Acetaminophen (Tylenol 325mg Tab) 650 mg PO Q6H PRN PRN Reason: Pain, Mild (1-3) Diphenhydramine HCl (Benadryl) 25 mg PO HS PRN PRN Reason: Insomnia Ibuprofen (Motrin Tab) 600 mg PO Q6H PRN PRN Reason: Pain, moderate (4-7) Last Admin: 12/20/18 20:15 Dose: 600 mg Pantoprazole Sodium (Protonix Ec Tab) 40 mg PO 0600 JENNY Last Admin: 12/21/18 06:48 Dose: 40 mg - Labs Labs: 12/21/18 06:10 12/21/18 06:10 PT 12.2 SECONDS (9.4-12.5) 12/15/18 16:21 INR 1.10 12/15/18 16:21 APTT 40.8 Seconds (26.9-38.3) H 12/15/18 16:21 - Constitutional Appears: Well, No Acute Distress (sitting on EOB with hip flexed, comfortable) - Extremities Exam Additional comments: pain with hip ROM but improved somewhat calves soft NT neg homans - Neurological Exam Neurological Exam: Alert, Awake, Oriented x3 Neuro motor strength exam: Left Lower Extremity: 5, Right Lower Extremity: 5 - Psychiatric Exam Psychiatric exam: Normal Affect, Normal Mood - Skin Skin Exam: Normal Color, Warm Assessment and Plan (1) Septic arthritis of hip Assessment & Plan: conflicting results from MRI findings cultures negative from hip joint aspiration fluid cell count consistent with normal synovial fluid cultures from bone biopsy pending, no fungal elements or AFB seen on smear ID follow up appreciated ESR elevated but CRP normal no orthopedic intervention at this time cont PT/OT f/u bone biopsy results d/w Dr. Valenzuela, agrees with above Status: Acute
--- NOTE | 2018-12-22 01:17 | PN ---
DATE: 12/21/2018 SUBJECTIVE: The patient is seen in bed, in no acute distress. OBJECTIVE: VITAL SIGNS: Temperature is 98, blood pressure is 110/70, respiratory rate of 16. HEENT: Unremarkable. NECK: Supple. LUNGS: Have decreased breath sounds. HEART: Normal S1 and S2. ABDOMEN: Soft. LABORATORY EXAMINATION: Reveals the patient to have white count of 9, hemoglobin is noted, BUN of 17, creatinine of 0.8. Serology is noted. Microbiology reveals the cultures to be negative. ASSESSMENT AND PLAN: This is a 78-year-old male with osteoarthritis, hip pain, aspiration of the joint. He is currently off of antibiotics. He had biopsy from the femur bone, waiting for microbiology, thus far no growth on the pathology report. We will follow with you. AFB smear is negative of the femur. Pathology is pending. Jorje Meneses MD
[2018-12-22] MEDS: Pantoprazole 40 mg EC Tab PO SCH (05:54)
[2018-12-22 07:00] LABS: BASO # 0.02 K/mm3 (0.0-2.0); BASO % 0.2 % (0.0-3.0); EOS # 0.4 (0.0-0.7); EOS % 4.5 % (1.5-5.0); HEMOGLOBIN 12.4 g/dL (14.0-18.0); LYMPH # 1.2 (1.2-3.4); LYMPH % 12.4 % (22.0-35.0); MEAN CELL VOLUME 94.4 fl (80.0-105.0); MEAN CORPUSCULAR HEMOGLOBIN 31.3 pg (25.0-35.0); MEAN CORPUSCULAR HGB CONC 33.2 g/dl (31.0-37.0); MEAN PLATELET VOLUME 11.3 fl (7.0-11.0); MONO # 1.1 (0.1-0.6); MONO % 11.2 % (1.0-6.0); RBC 3.96 10^6/uL (3.5-6.1); RED CELL DISTRIBUTION WIDTH 13.2 % (11.5-14.5); WHITE BLOOD COUNT 9.5 10^3/uL (4.5-11.0)
[2018-12-22 07:51] LABS: ALB/GLOB RATIO 1.2 (1.1-1.8); ALBUMIN 3.6 g/dL (3.0-4.8); ALT/SGPT 19 U/L (7-56); AST/SGOT 28 U/L (17-59); BLOOD UREA NITROGEN 20 mg/dL (7-21); CALCIUM 9.2 mg/dL (8.4-10.5); GFR NON-AFRICAN AMERICAN > 60
--- NOTE | 2018-12-22 18:13 | CP.PCM.PN ---
<Malik Mckeon - Last Filed: 12/22/18 18:05> Subjective - Date & Time of Evaluation Date of Evaluation: 12/22/18 Time of Evaluation: 07:10 - Subjective Subjective: Malik Mckeon DO PGY1 Hospitalist Progress Note for Dr Hodgson Patient seen and examined at bedside. Right leg pain is improving today with pain meds. He denies fever, chills. No acute events overnight. Objective - Vital Signs/Intake and Output Vital Signs (last 24 hours): Temp Pulse Resp BP Pulse Ox 98.3 F 78 19 104/66 98 12/22/18 16:58 12/22/18 16:58 12/22/18 16:58 12/22/18 16:58 12/22/18 16:58 Intake and Output: 12/22/18 12/22/18 06:59 18:59 Intake Total 240 Balance 240 - Medications Medications: Current Medications Acetaminophen (Tylenol 325mg Tab) 650 mg PO Q6H PRN PRN Reason: Pain, Mild (1-3) Last Admin: 12/21/18 18:15 Dose: 650 mg Diphenhydramine HCl (Benadryl) 25 mg PO HS PRN PRN Reason: Insomnia Ibuprofen (Motrin Tab) 600 mg PO Q6H PRN PRN Reason: Pain, moderate (4-7) Last Admin: 12/22/18 05:57 Dose: 600 mg Pantoprazole Sodium (Protonix Ec Tab) 40 mg PO 0600 JENNY Last Admin: 12/22/18 05:54 Dose: 40 mg - Labs Labs: 12/22/18 06:30 12/22/18 06:30 PT 12.2 SECONDS (9.4-12.5) 12/15/18 16:21 INR 1.10 12/15/18 16:21 APTT 40.8 Seconds (26.9-38.3) H 12/15/18 16:21 - Additional Findings Additional findings: - Constitutional Appears: Non-toxic, No Acute Distress - Head Exam Head Exam: ATRAUMATIC, NORMOCEPHALIC - Eye Exam Eye Exam: EOMI, Normal Appearance - ENT Exam ENT Exam: Mucous Membranes Moist - Respiratory Exam Respiratory Exam: Clear to Auscultation Bilateral, NORMAL BREATHING PATTERN. absent: Rales, Rhonchi, Wheezes - Cardiovascular Exam Cardiovascular Exam: REGULAR RHYTHM, +S1, +S2. absent: Clicks, Gallop, Rubs - GI/Abdominal Exam GI & Abdominal Exam: Normal Bowel Sounds, Soft. absent: Distended, Firm, Guarding, Tenderness - Extremities Exam Additional comments: pain with ROM of right lower extremity right movement of quadriceps and calves +4/5 strength of right lower extremity, +5/5 of left lower extremity and bilateral upper extremity - Neurological Exam Neurological exam: Alert, CN II-XII Intact, Oriented x3 Additional comments: altered gait - Psychiatric Exam Psychiatric exam: Normal Affect, Normal Mood - Skin Skin Exam: Dry, Intact, Normal Color Assessment and Plan - Assessment and Plan (Free Text) Assessment: 78 year old male with PMH of arthritis presented with pain and discomfort of his right hip 3 weeks ago s/p fall. MRI showed septic joint with fluid collection. Patient admitted for workup of oseteomyelitis Plan: Right septic hip joint: -patient remains afebrile, no leukocytosis, procal negative -s/p femur biopsy by IR. f/u pathology report -MRI showed septic joint with fluid collection and suspected osteomyelitis -s/p 2-3cc R hip arthrocentesis. Fluid WBC 53. RPR and HIV: nonreactive. Procalcitonin: 0.08. CRP: 6.10. Blood culture: NGTD -[id number], lyme screen-negative, ESR elevated, CRP normal -X-ray of the hip showed severe degenerative changes -Hold antibiotics as per Dr Meneses -Continue tylenol PRN and ibuprofen PRN for pain -Orthopedic Surgery, Dr. Valenzuela, following- conservative management for now -cultures from bone biopsy pending, no fungal elements or AFB seen on smear -IR following, Dr. Benitez -ID following, Dr. Meneses -PT following-unsteady gait, uses walker. d/c home with home services Left arm Arthritis -continue tylenol PRN and ibuprofen PRN for pain GI/DVT: protonix/SCD Regular diet Case reviewed and paln discussed with attending physician, Dr. Gokul Mckeon, DO PGY1 <Paty Hodgson R - Last Filed: 12/23/18 08:16> Objective - Vital Signs/Intake and Output Vital Signs (last 24 hours): Temp Pulse Resp BP Pulse Ox 98.3 F 78 19 104/66 98 05/09/19 16:58 12/22/18 16:58 12/22/18 16:58 12/22/18 16:58 12/22/18 16:58 Intake and Output: 12/23/18 12/23/18 06:59 18:59 Intake Total 120 Balance 120 - Medications Medications: Current Medications Acetaminophen (Tylenol 325mg Tab) 650 mg PO Q6H PRN PRN Reason: Pain, Mild (1-3) Last Admin: 12/21/18 18:15 Dose: 650 mg Diphenhydramine HCl (Benadryl) 25 mg PO HS PRN PRN Reason: Insomnia Last Admin: 12/22/18 20:44 Dose: 25 mg Ibuprofen (Motrin Tab) 600 mg PO Q6H PRN PRN Reason: Pain, moderate (4-7) Last Admin: 12/22/18 20:44 Dose: 600 mg Pantoprazole Sodium (Protonix Ec Tab) 40 mg PO 0600 JENNY Last Admin: 12/23/18 06:44 Dose: 40 mg - Labs Labs: 12/22/18 06:30 12/22/18 06:30 PT 12.2 SECONDS (9.4-12.5) 12/15/18 16:21 INR 1.10 12/15/18 16:21 APTT 40.8 Seconds (26.9-38.3) H 12/15/18 16:21 Attending/Attestation - Attestation I have personally seen and examined this patient.: Yes I have fully participated in the care of the patient.: Yes I have reviewed all pertinent clinical information, including history, physical exam and plan: Yes Notes (Text): Patient seen and examined by me with resident at approximately 9:501AM on 12/22/18. Case including HPI, physical exam, and assessment and plan discussed with resident. Agree with above with following additions/corrections. Patient is a 78 year old male with past medical history significant for arthritis in right hip pain that presented to the emergency room after being s ent in by his doctor after having an MRI of the right hip. Patient states that he feels about the same. Still with right hip and knee pain. Feels stiffness in the morning which improves throughout the day. Pain controlled with ibuprofen. No chest pain or shortness of breath. No fevers or chills. No nausea, vomiting, or abdominal pain. No dysuria. No headaches or dizziness. Patient is having bowel movements. Physical exam: General: Awake and alert lying in bed in no acute distress HEENT: Normocephalic, atraumatic. Extraocular muscles intact. Pupils equal and reactive, no scleral icterus. Oropharynx is pink and moist. No pharyngeal erythema or exudate appreciated. Neck is supple. Cardiovascular: Normal rhythm. Normal S1 and S2. No murmurs, rubs, or gallops appreciated Pulmonary: Normal respiratory effort. No rhonchi, rales, or wheezing appreciated Gastrointestinal: Soft, nondistended. Nontender. Positive bowel sounds all 4 quadrants. No guarding. Musculoskeletal: Moves all extremities. Decreased range of motion right hip. No calf tenderness. No edema appreciated. Central nervous system: AAO x3 Dermatologic: Skin warm and dry. Assessment and plan: Patient is a 78 year old male with past medical history significant for arthritis in right hip pain that presented to the emergency room after being sent in by his doctor after having an MRI of the right hip. 1. Right hip pain. Severe degenerative joint disease. Possible septic arthritis with fluid collection. Possible proximal femur osteomyelitis. Ortho recommendations appreciated. Antibiotics stopped. IR biopsy 11/20/18 of proximal femur and right acetabulum, pending cultures and path report. S/P CT guided right hip aspiration 12/16/18. Cultures have been negative. Blood culture with no growth. ID recommendations appreciated. Procalcitonin 0.08. Continue PT. Right hip and pelvic xray showed severe degenerative changes right hip. MRI as previously stated. Afebrile. No leukocytosis. 2. Gait instability secondary to pain. Continue PT. Continue Ibuprofen as needed for pain Case was discussed in detail with the patient regarding current diagnosis, study results, and treatment plan. All questions answered.
--- NOTE | 2018-12-22 21:35 | PN ---
DATE: 12/22/2018 SUBJECTIVE: The patient is in bed, seen earlier today in room 372, bed wall bed 2. The patient still with the hip pain. No fevers, no chills. PHYSICAL EXAMINATION: VITAL SIGNS: Temperature 98, blood pressure is 128/60, respiratory rate of 18. HEENT: Unremarkable. NECK: Supple. LUNGS: Have decreased breath sounds. HEART: Normal S1, S2. ABDOMEN: Soft. LABORATORY EXAMINATION: Reveals the patient's white count is 9.5, hemoglobin of 12. Chemistries are reviewed and C-reactive protein is not elevated and serology is negative. Microbiology is no growth and no anaerobes isolated and all cultures from the urine specimen are negative. Pathology is pending. REVIEW OF ORDERS: Reveals the patient is off of antibiotics. ASSESSMENT AND PLAN: This is a 78-year-old male with osteoarthritis, hip pain and aspiration of the joint which was negative. His MRI of the femur osteomyelitis is noted. Etiology was not clear. He has been off of antibiotics and had CT-guided biopsy of the femur does for the cultures are negative and waiting for pathology report, etiology of this finding is unclear. We will follow with you. Case discussed with the medical team and Dr. Hodgson, the head of the team. Jorje Meneses MD
[2018-12-23] MEDS: Pantoprazole 40 mg EC Tab PO SCH (06:44)
--- NOTE | 2018-12-23 06:56 | CP.PCM.PN ---
Subjective - Date & Time of Evaluation Date of Evaluation: 12/23/18 Time of Evaluation: 05:40 - Subjective Subjective: Malik Mckeon DO PGY1 Hospitalist Progress Note for Dr Hodgson Patient seen and examined at bedside. Right leg pain is improving today with pain meds. He denies fever, chills. No acute events overnight. Still waiting for right femur biopsy result Objective - Vital Signs/Intake and Output Vital Signs (last 24 hours): Temp Pulse Resp BP Pulse Ox 98.3 F 78 19 104/66 98 12/22/18 16:58 12/22/18 16:58 12/22/18 16:58 12/22/18 16:58 12/22/18 16:58 Intake and Output: 12/22/18 12/23/18 18:59 06:59 Intake Total 120 Balance 120 - Medications Medications: Current Medications Acetaminophen (Tylenol 325mg Tab) 650 mg PO Q6H PRN PRN Reason: Pain, Mild (1-3) Last Admin: 12/21/18 18:15 Dose: 650 mg Diphenhydramine HCl (Benadryl) 25 mg PO HS PRN PRN Reason: Insomnia Last Admin: 12/22/18 20:44 Dose: 25 mg Ibuprofen (Motrin Tab) 600 mg PO Q6H PRN PRN Reason: Pain, moderate (4-7) Last Admin: 12/22/18 20:44 Dose: 600 mg Pantoprazole Sodium (Protonix Ec Tab) 40 mg PO 0600 JENNY Last Admin: 12/23/18 06:44 Dose: 40 mg - Labs Labs: 12/22/18 06:30 12/22/18 06:30 PT 12.2 SECONDS (9.4-12.5) 12/15/18 16:21 INR 1.10 12/15/18 16:21 APTT 40.8 Seconds (26.9-38.3) H 12/15/18 16:21 - Additional Findings Additional findings: - Constitutional Appears: Non-toxic, No Acute Distress - Head Exam Head Exam: ATRAUMATIC, NORMOCEPHALIC - Eye Exam Eye Exam: EOMI, Normal Appearance - ENT Exam ENT Exam: Mucous Membranes Moist - Respiratory Exam Respiratory Exam: Clear to Auscultation Bilateral, NORMAL BREATHING PATTERN. absent: Rales, Rhonchi, Wheezes - Cardiovascular Exam Cardiovascular Exam: REGULAR RHYTHM, +S1, +S2. absent: Clicks, Gallop, Rubs - GI/Abdominal Exam GI & Abdominal Exam: Normal Bowel Sounds, Soft. absent: Distended, Firm, Guarding, Tenderness - Extremities Exam Additional comments: pain with ROM of right lower extremity right movement of quadriceps and calves +4/5 strength of right lower extremity, +5/5 of left lower extremity and bilateral upper extremity - Neurological Exam Neurological exam: Alert, CN II-XII Intact, Oriented x3 Additional comments: altered gait - Psychiatric Exam Psychiatric exam: Normal Affect, Normal Mood - Skin Skin Exam: Dry, Intact, Normal Color Assessment and Plan - Assessment and Plan (Free Text) Assessment: 78 year old male with PMH of arthritis presented with pain and discomfort of his right hip 3 weeks ago s/p fall. MRI showed septic joint with fluid collection. Patient admitted for workup of oseteomyelitis Plan: Right septic hip joint: -patient remains afebrile, no leukocytosis, procal negative -s/p right CT-guided femur biopsy. cultures negative. f/u pathology report -MRI showed septic joint with fluid collection and suspected osteomyelitis -s/p 2-3cc R hip arthrocentesis. Fluid WBC 53. RPR and HIV: nonreactive. Procalcitonin: 0.08. CRP: 6.10. Blood culture: NGTD -[id number], lyme screen-negative, ESR elevated, CRP normal -X-ray of the hip showed severe degenerative changes -Hold antibiotics as per Dr Meneses -Continue tylenol PRN and ibuprofen PRN for pain -Orthopedic Surgery, Dr. Valenzuela, following- conservative management for now -cultures from bone biopsy pending, no fungal elements or AFB seen on smear -IR following, Dr. Benitez -ID following, Dr. Meneses -PT following-unsteady gait, uses walker. d/c home with home services Left arm Arthritis -continue tylenol PRN and ibuprofen PRN for pain GI/DVT: protonix/SCD Regular diet Case reviewed and paln discussed with attending physician, Dr. Gokul Mckeon, DO PGY1 DRAFTED NOT FINALIZED
[2018-12-23 09:08] VITALS: RESP 20
--- NOTE | 2018-12-23 14:26 | CP.PCM.DIS ---
Provider - Provider Date of Admission: 12/15/18 16:45 Attending physician: Keven Hunter MD Primary care physician: Lionel Portillo MD Consults: 12/15/18 16:56 Orthopedic Consult Stat Comment: Consulting Provider: Peri Mercado Consulting Physician: Peri Mercado Reason for Consult: septic right hip joint 12/15/18 17:27 Physician Consult Routine Comment: Consulting Provider: Abdon Benitez Consulting Physician: Abdon Benitez Reason for Consult: right hip septic joint- arthrocentesis 12/15/18 17:30 Physician Consult Routine Comment: Consulting Provider: Jorje Meneses Consulting Physician: Jorje Meneses Reason for Consult: right hip septic joint- outpatient MRI and bone scan Time Spent in preparation of Discharge (in minutes): 45 Hospital Course - Lab Results Lab Results: Micro Results 12/20/18 14:55 Other: Please Indicate Gram Stain - Final 12/20/18 14:55 Other: Please Indicate Body Fluid Culture - Preliminary NO GROWTH AFTER 3 DAYS 12/20/18 14:55 Other: Please Indicate Mycobacterial Culture - Preliminary 12/20/18 14:55 Other: Please Indicate Gram Stain - Final 12/20/18 14:55 Other: Please Indicate Body Fluid Culture - Preliminary NO GROWTH AFTER 3 DAYS 12/16/18 12:18 Other: Please Indicate Gram Stain - Final 12/16/18 12:18 Other: Please Indicate Body Fluid Culture - Final No growth. 12/16/18 12:18 Other: Please Indicate Fungal Culture - Preliminary 12/20/18 14:55 Other: Please Indicate Anaerobic Culture - Final NO ANAEROBES ISOLATED. 12/20/18 14:55 Other: Please Indicate Anaerobic Culture - Final NO ANAEROBES ISOLATED. 12/20/18 14:55 Other: Please Indicate Mycobacterial Culture - Preliminary 12/15/18 15:30 Blood Blood Culture - Final NO GROWTH AFTER 5 DAYS 12/15/18 15:30 Blood Gram Stain - Final TEST NOT PERFORMED 12/15/18 14:30 Blood Blood Culture - Final NO GROWTH AFTER 5 DAYS 12/15/18 14:30 Blood Gram Stain - Final TEST NOT PERFORMED 12/16/18 12:18 Hip - Right Anaerobic Culture - Final NO ANAEROBES ISOLATED. Most Recent Lab Values WBC 9.5 10^3/uL (4.5-11.0) 12/22/18 06:30 RBC 3.96 10^6/uL (3.5-6.1) 12/22/18 06:30 Hgb 12.4 g/dL (14.0-18.0) L 12/22/18 06:30 Hct 37.4 % (42.0-52.0) L 12/22/18 06:30 MCV 94.4 fl (80.0-105.0) 12/22/18 06:30 MCH 31.3 pg (25.0-35.0) 12/22/18 06:30 MCHC 33.2 g/dl (31.0-37.0) 12/22/18 06:30 RDW 13.2 % (11.5-14.5) 12/22/18 06:30 Plt Count 238 10^3/uL (120.0-450.0) 12/22/18 06:30 MPV 11.3 fl (7.0-11.0) H 12/22/18 06:30 Neut % (Auto) 71.7 % (50.0-68.0) H 12/22/18 06:30 Lymph % (Auto) 12.4 % (22.0-35.0) L 12/22/18 06:30 [place] % (Auto) 11.2 % (1.0-6.0) H 12/22/18 06:30 Eos % (Auto) 4.5 % (1.5-5.0) 12/22/18 06:30 Baso % (Auto) 0.2 % (0.0-3.0) 12/22/18 06:30 Lymph # (Auto) 1.2 (1.2-3.4) 12/22/18 06:30 [place] # (Auto) 1.1 (0.1-0.6) H 12/22/18 06:30 Eos # (Auto) 0.4 (0.0-0.7) 12/22/18 06:30 Baso # (Auto) 0.02 K/mm3 (0.0-2.0) 12/22/18 06:30 Absolute Neuts (auto) 6.78 (1.4-6.5) H 12/22/18 06:30 ESR 25 mm/hr (0.00-15.0) H 12/20/18 06:30 PT 12.2 SECONDS (9.4-12.5) 12/15/18 16:21 INR 1.10 12/15/18 16:21 APTT 40.8 Seconds (26.9-38.3) H 12/15/18 16:21 Sodium 139 mmol/L (132-148) 12/22/18 06:30 Potassium 4.3 mmol/L (3.6-5.0) 12/22/18 06:30 Chloride 103 mmol/L (98-107) 12/22/18 06:30 Carbon Dioxide 30 mmol/L (21-33) 12/22/18 06:30 Anion Gap 10 (10-20) 12/22/18 06:30 BUN 20 mg/dL (7-21) 12/22/18 06:30 Creatinine 0.7 mg/dl (0.8-1.5) L 12/22/18 06:30 Est GFR ( Amer) > 60 12/22/18 06:30 Est GFR (Non-Af Amer) > 60 12/22/18 06:30 Random Glucose 89 mg/dL (70-110) 12/22/18 06:30 Calcium 9.2 mg/dL (8.4-10.5) 12/22/18 06:30 Phosphorus 3.7 mg/dL (2.5-4.5) 12/16/18 06:20 Magnesium 2.1 mg/dL (1.7-2.2) 12/16/18 06:20 Total Bilirubin 0.5 mg/dL (0.2-1.3) 12/22/18 06:30 AST 28 U/L (17-59) 12/22/18 06:30 ALT 19 U/L (7-56) 12/22/18 06:30 Alkaline Phosphatase 87 U/L (38-126) 12/22/18 06:30 C-Reactive Protein 6.10 mg/L (0.0-9.9) 12/16/18 07:00 C-React Prot High Sens 2.58 mg/L (1.00-3.00) 12/19/18 11:00 Total Protein 6.7 g/dL (5.8-8.3) 12/22/18 06:30 Albumin 3.6 g/dL (3.0-4.8) 12/22/18 06:30 Globulin 3.1 gm/dL 12/22/18 06:30 Albumin/Globulin Ratio 1.2 (1.1-1.8) 12/22/18 06:30 Procalcitonin 0.08 NG/ML (0.19-0.49) L 12/16/18 07:00 Fluid Source Peritoneal 12/16/18 12:18 Fluid Appearance Sl cloudy (CLEAR) 12/16/18 12:18 Fluid WBC 63.0 /uL (0.0-300.0) 12/16/18 12:18 Fluid RBC 784.0 /uL (0.0-0.0) H 12/16/18 12:18 Fluid Tot Cell Count 100 (0-0) H 12/16/18 12:18 Fluid Mononuclear Cell 55.6 % (0-0) H 12/16/18 12:18 Fl Polymorphonucl Cell 44.4 % (0-0) H 12/16/18 12:18 Fluid Comment Straw 12/16/18 12:18 RPR Nonreactive (NONREACTIVE) 12/16/18 07:00 T.pallidum Ab (FTA-ABS) Nonreactive (Nonreactive) 12/16/18 11:00 Lyme Disease Screen <0.90 index 12/16/18 11:00 HIV 1&2 Ag/Ab, 4th Gen Nonreactive (Nonreactive) 12/16/18 11:00 - Hospital Course Hospital Course: 78 year old male with PMH of arthritis presented with pain and discomfort of his right hip 3 weeks ago s/p fall. Patient admitted for workup of oseteomyelitis. MRI showed septic joint with fluid collection and suspected osteomyelitis. X-ray of the hip showed severe degenerative changes. Patient underwent right hip arthrocentesis that showed fluid WBC 53. RPR, nonreactive. HIV, nonreactive, procalcitonin not elevated. CRP: 6.10, blood culture negative. [id number], lyme screen-negative, ESR elevated, CRP normal. Patient seen by infectous disease Dr. Meneses who recommended holding antibiotic theerapy. Patient underwent right femur biopsy that showed degenerative changes, no infection or malignancy. Patient seen by orthopedic Surgery, Dr. Valenzuela who recommended conservative management. Patient was followed by physical therapy during hospital stay and recommended home discharge with services. Patient was on pain medication tylenol and ibuprofen as needed, his pain was well controlled. On the day of discharge , patient was hemodynamically stable, afebrile, can ambulate with can, pain well controlled with medication. He is discharged home with PT services. Additional instructions as below. Discharge Exam - Additional Findings Additional findings: - Constitutional Appears: Non-toxic, No Acute Distress - Head Exam Head Exam: ATRAUMATIC, NORMOCEPHALIC - Eye Exam Eye Exam: EOMI, Normal Appearance - ENT Exam ENT Exam: Mucous Membranes Moist - Respiratory Exam Respiratory Exam: Clear to Auscultation Bilateral, NORMAL BREATHING PATTERN. absent: Rales, Rhonchi, Wheezes - Cardiovascular Exam Cardiovascular Exam: REGULAR RHYTHM, +S1, +S2. absent: Clicks, Gallop, Rubs - GI/Abdominal Exam GI & Abdominal Exam: Normal Bowel Sounds, Soft. absent: Distended, Firm, Guarding, Tenderness - Extremities Exam Additional comments: pain with ROM of right lower extremity right movement of quadriceps and calves +4/5 strength of right lower extremity, +5/5 of left lower extremity and bilateral upper extremity - Neurological Exam Neurological exam: Alert, CN II-XII Intact, Oriented x3 Additional comments: altered gait - Psychiatric Exam Psychiatric exam: Normal Affect, Normal Mood - Skin Skin Exam: Dry, Intact, Normal Color Discharge Plan - Discharge Medications Prescriptions: Ibuprofen [Motrin Tab] 600 mg PO Q8H PRN #15 tab PRN Reason: Pain, Moderate (4-7) - Follow Up Plan Condition: STABLE Disposition: HOME/ ROUTINE Patient education suggested?: Yes Instructions: Septic Arthritis, Osteoarthritis (DC), Osteomyelitis (DC), Swollen Joints (DC) Additional Instructions: -Please follow up with Dr. Portillo within 3-5 days after discharge -Please follow up with orthopedic surgeon Dr Vidal within 3-5 days of discharge for further treatment of your hip and leg pain and possible need for hip replacement surgery -You may take tylenol or ibuprofen for pain. Please limit the amount of ibuprofen as it can cause stomach bleeds and take this medication with food. -You are discharged home with physical therapy services. Please follow their instructions -You are on weight-bearing as tolerated on your right hip until seen by orthopedics for further recommendation -Please take your home medications as prescribed -Please return to the emergency room if symptoms return or you experience new concerning symptoms Referrals: Papi Tolbert MD [Staff Provider] - Lionel Portillo MD [Primary Care Provider] -
[2018-12-23 16:12] VITALS: BP 122/69; PULSE 88; TEMP 97.9; O2SAT 96
--- NOTE | 2018-12-23 20:15 | PN ---
DATE: 12/25/2018 SUBJECTIVE: The patient is in bed in no acute distress, and seen earlier this morning in room 372, bed 2. PHYSICAL EXAMINATION: GENERAL: The patient is in bed, nontoxic. VITAL SIGNS: Temperature of 98, blood pressure is 120/70 and respiratory rate 16. HEENT: Unremarkable. NECK: Supple. LUNGS: Decreased breath sounds. HEART: Normal S1 and S2. ABDOMEN: Soft. LABORATORY DATA: Reveals a white count of 9.5 and hemoglobin of 12. BUN 20 and creatinine of 0.7. Serology is noted. Microbiology is noted. ASSESSMENT AND PLAN: A 78-year-old with osteoarthritis, hip pain, and aspiration of the joint negative. CAT scan of the femur was done, pathology report reveals it to be benign, no evidence of osteomyelitis, no fracture and no malignancies. Microbiology reveals no growth. No antibiotics at this time. Follow the patient with Orthopedic Surgery as outpatient. Jorje Meneses MD
== END 2018-12-23 19:46 | disposition home or self-care (01) | DRG 479 ==
LOC: ED 13:57 → ERH 16:45 → 3RSO 18:32
PROVIDERS: ADMIT Internal Medicine; ATTEND Internal Medicine
PROC: 0S993ZX Drainage of Right Hip Joint, Percutaneous Approach, Diagnostic (ICD-10-PCS; 2018-12-16)
PROC: 0QB63ZX Excision of Right Upper Femur, Percutaneous Approach, Diagnostic (ICD-10-PCS; 2018-12-20)
PROC: 0QB43ZX Excision of Right Acetabulum, Percutaneous Approach, Diagnostic (ICD-10-PCS; principal; 2018-12-20 13:00)
DX: M16.11 Unilateral primary osteoarthritis, right hip (principal); M25.451 Effusion, right hip; R26.9 Unspecified abnormalities of gait and mobility; Z87.891 Personal history of nicotine dependence

== ENCOUNTER 2019-01-06 09:40 | Outpatient (CLI) | payer BC | END 2019-01-06 09:41 | disposition home or self-care (01) | LOC: LAB 09:40 ==